=== PATIENT | female | born 1980 | race African-American/Black ===

== ENCOUNTER 2016-11-16 19:50 | Inpatient (IN) | payer SELFPAY ==
[~2016-11-16] VITALS: Ht 170.2 cm; Wt 83.1 kg
[2016-11-16 19:55] VITALS: BP 119/69; PULSE 93; RESP 0; RESP 20; TEMP 98.6; O2SAT 100
[2016-11-16] MEDS ORDERED: SODIUM CHLOR 0.9% 1000 ML INJ 1,000 ML IV SCH ×2 (20:09→21:15)
[2016-11-16 20:12] LABS: MEAN CORPUSCULAR HGB CONC 28.6 % (32.0-36.0)
[2016-11-16] MEDS ORDERED: PANTOPRAZOLE SODIUM 40 MG VIAL IVP ONE (20:15)
[2016-11-16] MEDS ORDERED: ONDANSETRON HCL 4 MG/2 ML VIAL IVP ONE ×2 (20:15→21:15)
[2016-11-16] MEDS ORDERED: FAMOTIDINE 20 MG/2 ML VIAL IV PUSH ONE (20:15)
[2016-11-16] MEDS ORDERED: SODIUM CHLORIDE 0.9% FLUSH 10 ML FLUSH IV FLUSH PRN ×2 (20:15→21:45)
[2016-11-16] MEDS ORDERED: HYDROmorphone HCL PF 2 MG/ML VIAL IVS ONE ×2 (20:15→21:15)
--- NOTE | 2016-11-16 20:15 | PD ---
HPI Chief Complaint: Abdominal Pain Time Seen by Provider: 20:09 Travel History International Travel<30 days: No Contact w/Intl Traveler<30days: No Traveled to known affect area: No History of Present Illness HPI The patient is a 36-year-old female who complains of midline epigastric pain starting about 12 noon this morning. She does have nausea and vomiting. She states the pain is sharp, like a gunshot wound, and a 10 over 10. She denies any fever or diarrhea. She has had her appendix out but still has her gallbladder. She denies any dysuria, frequency or urgency. She denies any fever. She denies drinking any alcohol recently. [facility] Past Medical History Diminished Hearing: No LMP: END OF LAST MONTH : 3 Para: 2 Miscarriage: 1 Past Surgical History Appendectomy: Yes Social History Alcohol Use: Yes Tobacco Use: Yes Substance Use: No Allergies-Medications (Allergen,Severity, Reaction): Coded Allergies: No Known Allergies (Verified , 02/16/14) Reported Meds & Prescriptions Reported Meds & Active Scripts Active No Active Prescriptions or Reported Medications Review of Systems Except as stated in HPI: all other systems reviewed are Neg Physical Exam Narrative GENERAL: The patient is alert, oriented 3 in moderate to severe distress with her abdominal pain. Her vital signs are normal. SKIN: Focused skin assessment warm/dry. HEAD: Atraumatic. Normocephalic. EYES: Pupils equal and round. No scleral icterus. No injection or drainage. ENT: No nasal bleeding or discharge. Mucous membranes pink and moist. NECK: Trachea midline. No JVD. CARDIOVASCULAR: Regular rate and rhythm. No murmur appreciated. RESPIRATORY: No accessory muscle use. Clear to auscultation. Breath sounds equal bilaterally. GASTROINTESTINAL: Abdomen soft in the lower quadrants with tenderness to direct palpation in the midline epigastrium there is some guarding in the midline epigastrium, nondistended. Hepatic and splenic margins not palpable. Hernandez's sign is positive. MUSCULOSKELETAL: No obvious deformities. No clubbing. No cyanosis. No edema. NEUROLOGICAL: Awake and alert. No obvious cranial nerve deficits. Motor grossly within normal limits. Normal speech. PSYCHIATRIC: Appropriate mood and affect; insight and judgment normal. Data Data Last Documented VS Vital Signs Date Time Temp Pulse Resp B/P Pulse Ox O2 Delivery O2 Flow Rate FiO2 11/16/16 21:00 17 11/16/16 20:30 83 133/63 100 Room Air 11/16/16 19:55 98.6 Orders Beta Hcg (Quant/Titer) (11/16/16 20:09) Complete Blood Count With Diff (11/16/16 20:09) Comprehensive Metabolic Panel (11/16/16 20:09) Lipase (11/16/16 20:09) Urinalysis - C+S If Indicated (11/16/16 20:09) Ct Abd/Pel W Iv Contrast(Rout) (11/16/16 20:09) Iv Access Insert/Monitor (11/16/16 20:09) Ecg Monitoring (11/16/16 20:09) Oximetry (11/16/16 20:09) Hydromorphone Pf Inj (Dilaudid Pf Inj) (11/16/16 20:15) Ondansetron Inj (Zofran Inj) (11/16/16 20:15) Pantoprazole Inj (Protonix Inj) (11/16/16 20:15) Sodium Chlor 0.9% 1000 Ml Inj (Ns 1000 M (11/16/16 20:09) Sodium Chloride 0.9% Flush (Ns Flush) (11/16/16 20:15) Famotidine Inj (Pepcid Inj) (11/16/16 20:15) Iohexol 350 Inj (Omnipaque 350 Inj) (11/16/16 20:54) Hydromorphone Pf Inj (Dilaudid Pf Inj) (11/16/16 21:15) Ondansetron Inj (Zofran Inj) (11/16/16 21:15) Sodium Chlor 0.9% 1000 Ml Inj (Ns 1000 M (11/16/16 21:15) Pantoprazole Inj (Protonix Inj) (11/17/16 09:00) Lipase (11/17/16 06:00) Piperacil-Tazo 4.5 Gm Premix (Zosyn 4.5 (11/16/16 22:00) Type And Screen (11/16/16 21:31) Admit To Inpatient (11/16/16 ) Vital Signs (Adult) Q4H (11/16/16 21:31) Activity Oob Ad Lisette (11/16/16 21:31) Intake + Output GEE.QSHIFT (11/16/16 21:31) Diet Clear Liquid (11/17/16 Breakfast) Sodium Chlor 0.9% 1000 Ml Inj (Ns 1000 M (11/16/16 21:31) Sodium Chloride 0.9% Flush (Ns Flush) (11/16/16 21:45) Sodium Chloride 0.9% Flush (Ns Flush) (11/17/16 09:00) Ondansetron Inj (Zofran Inj) (11/16/16 21:45) Comprehensive Metabolic Panel (11/17/16 06:00) Complete Blood Count With Diff (11/17/16 06:00) Scd Bilateral/Knee High GEE.BID (11/16/16 21:31) Dariel Bilateral/Knee High GEE.QSHIFT (11/16/16 21:31) Acetaminophen (Tylenol) (11/16/16 21:45) Hydromorphone Pf Inj (Dilaudid Pf Inj) (11/16/16 21:45) Oxycodone (Roxicodone) (11/16/16 21:45) Docusate Sodium-Senna (Melva-Colace) (11/17/16 09:00) Magnesium Hydroxide Liq (Milk Of Magnesi (11/16/16 21:45) Sennosides (Senokot) (11/16/16 21:45) Bisacodyl Supp (Dulcolax Supp) (11/16/16 21:45) Lactulose Liq (Lactulose Liq) (11/16/16 21:45) Inpatient Certification (11/16/16 ) Labs Laboratory Tests Test 11/16/16 20:15 White Blood Count 14.3 TH/MM3 Red Blood Count 4.04 MIL/MM3 Hemoglobin 7.5 GM/DL Hematocrit 26.2 % Mean Corpuscular Volume 64.9 FL Mean Corpuscular Hemoglobin 18.5 PG Mean Corpuscular Hemoglobin 28.6 % Concent Red Cell Distribution Width 21.4 % Platelet Count 380 TH/MM3 Mean Platelet Volume 8.1 FL Neutrophils (%) (Auto) 81.7 % Lymphocytes (%) (Auto) 10.1 % Monocytes (%) (Auto) 6.6 % Eosinophils (%) (Auto) 0.0 % Basophils (%) (Auto) 1.6 % Neutrophils # (Auto) 11.8 TH/MM3 Lymphocytes # (Auto) 1.4 TH/MM3 Monocytes # (Auto) 0.9 TH/MM3 Eosinophils # (Auto) 0.0 TH/MM3 Basophils # (Auto) 0.2 TH/MM3 CBC Comment AUTO DIFF Differential Comment AUTO DIFF CONFIRMED Tear Drop Cells 1+ Ovalocytes 1+ Stomatocytes 1+ Urine Color YELLOW Urine Turbidity CLEAR Urine pH GREATER/EQUAL 9.0 Urine Specific [place] 1.025 Urine Protein TRACE mg/dL Urine Glucose (UA) NEG mg/dL Urine Ketones NEG mg/dL Urine Occult Blood NEG Urine Nitrite NEG Urine Bilirubin NEG Urine Leukocyte Esterase NEG Urine RBC 0-3 /hpf Urine WBC 0-2 /hpf Urine Squamous Epithelial 6-8 /hpf Cells Microscopic Urinalysis Comment CULT NOT INDICATED Sodium Level 139 MEQ/L Potassium Level 3.5 MEQ/L Chloride Level 107 MEQ/L Carbon Dioxide Level 24.2 MEQ/L Anion Gap 8 MEQ/L Blood Urea Nitrogen 5 MG/DL Creatinine 0.67 MG/DL Estimat Glomerular Filtration 119 ML/MIN Rate Random Glucose 112 MG/DL Calcium Level 8.1 MG/DL Total Bilirubin 0.3 MG/DL Aspartate Amino Transf 23 U/L (AST/SGOT) Alanine Aminotransferase 30 U/L (ALT/SGPT) Alkaline Phosphatase 85 U/L Total Protein 7.2 GM/DL Albumin 3.3 GM/DL Lipase 82173 U/L Human Chorionic Gonadotropin, LESS THAN 1 Quant MIU/ML [facility] Medical Decision Making Medical Screen Exam Complete: Yes Emergency Medical Condition: Yes Medical Record Reviewed: Yes Interpretation(s) The CBC shows a white count of 14,300 with 82% neutrophils. The complete metabolic profile is normal except for calcium of 8.1 and albumen of 3.3. The lipase is 19,870. The beta-hCG is less than 1. The urinalysis is normal except for specific gravity 1.025. The CT abdomen/pelvis with IV contrast shows acute pancreatitis. Differential Diagnosis Pancreatitis, acute cholecystitis, choledocholithiasis, pyelonephritis, electrolyte disorder, dehydration, Narrative Course It is now 9:21 PM and the patient is still in significant pain. She will be given a second 1 mg dose of Dilaudid IV. Physician Communication Physician Communication I discussed the patient with Dr. Hatch, the patient will be admitted to her. Diagnosis Primary Impression: Acute pancreatitis Additional Impressions: Intractable abdominal pain Intractable vomiting with nausea Admitting Information Admitting Physician Requests: Admit Scripts No Active Prescriptions or Reported Meds Merlin Mireles MD Nov 16, 2016 20:15
[2016-11-16 20:30] VITALS: BP 133/63; PULSE 83; RESP 22; O2SAT 100
[2016-11-16 20:41] LABS: BLOOD, URINE NEG (NEG); GLUCOSE,URINE NEG (NEG); KETONE, URINE NEG (NEG); NITRITE,URINE NEG (NEG)
[2016-11-16 20:43] LABS: PH, URINE GREATER/EQUAL 9.0 (5.0-8.5)
[2016-11-16 20:45] LABS: AUTOMATED NEUTROPHIL # 11.8 TH/MM3 (1.8-7.7); BASOPHIL # 0.2 TH/MM3 (0-0.2); BASOPHIL % 1.6 % (0.0-2.0); HEMATOCRIT 26.2 % (35.0-46.0); LYMPH % 10.1 % (9.0-44.0); LYMPHOCYTE # 1.4 TH/MM3 (1.0-4.8); MEAN CELL VOLUME 64.9 FL (80.0-100.0); MEAN CORPUSCULAR HEMOGLOBIN 18.5 PG (27.0-34.0); MONO % 6.6 % (0.0-8.0); NEUT % 81.7 % (16.0-70.0); PLATELET COUNT 380 TH/MM3 (150-450); RED BLOOD COUNT 4.04 MIL/MM3 (4.00-5.30); RED CELL DISTRIBUTION WIDTH 21.4 % (11.6-17.2); WHITE BLOOD COUNT 14.3 TH/MM3 (4.0-11.0)
[2016-11-16 20:47] LABS: CHLORIDE 107 MEQ/L (98-107); HEMO FLAGS AUTO DIFF; POTASSIUM 3.5 MEQ/L (3.5-5.1); SODIUM (NA) 139 MEQ/L (136-145)
[2016-11-16 20:50] LABS: RBC, URINE 0-3 /hpf (0-3); URINE COLOR YELLOW (YELLW/STRAW); WBC, URINE 0-2 /hpf (0-5)
[2016-11-16 20:51] LABS: ANION GAP 8 MEQ/L (5-15); BICARBONATE 24.2 MEQ/L (21.0-32.0); BLOOD UREA NITROGEN 5 MG/DL (7-18); COMMENT (UR) CULT NOT INDICATED; CULTURE IF INDICATED CULT NOT INDICATED
[2016-11-16 20:53] LABS: ALT (GPT) 30 U/L (10-53); AST (GOT) 23 U/L (15-37)
[2016-11-16 20:54] LABS: GLOMERULAR FILTRATION RATE 119 ML/MIN (>89)
[2016-11-16] MEDS ORDERED: IOHEXOL 350 MG/ML 10 ML VIAL (for RAD DIAG) IV ONE (20:54)
[2016-11-16 20:55] LABS: TOTAL BILIRUBIN ADULT 0.3 MG/DL (0.2-1.0)
[2016-11-16 20:56] LABS: ALKALINE PHOSPHATASE 85 U/L (45-117)
[2016-11-16 20:59] LABS: BETA HCG QUANT LESS THAN 1 MIU/ML (0-5)
[2016-11-16 21:18] LABS: OVALOCYTES 1+ (NORMAL); SCAN/DIFF AUTO DIFF CONFIRMED; STOMATOCYTES 1+ (NORMAL); TEARDROP RBCS 1+ (NORMAL)
--- NOTE | 2016-11-16 21:20 | RADRPT ---
EXAM DATE/TIME: 11/16/2016 20:40 [facility] COMPARISON: No previous studies available for comparison. INDICATIONS : Mid epigastric pain IV CONTRAST: 97 cc Omnipaque 350 (iohexol) IV ORAL CONTRAST: No oral contrast ingested. RADIATION DOSE: 6.88 CTDIvol (mGy) MEDICAL HISTORY : None SURGICAL HISTORY : Appendectomy. ENCOUNTER: Initial ACUITY: 1 day PAIN SCALE: 10/10 LOCATION: Bilateral middle abdomen TECHNIQUE: Volumetric scanning of the abdomen and pelvis was performed. Using automated exposure control and ad justment of the mA and/or kV according to patient size, radiation dose was kept as low as reasonably achievable to obtain optimal diagnostic quality images. DICOM format image data is available electro nically for review and comparison. FINDINGS: Focal area of low-density in the left lobe adjacent to the falciform ligament measuring 2.1 cm. This is felt to represent focal fatty infiltration. The kidneys, spleen, adrenal glands, gallbladder are u nremarkable. Urinary bladder and bilateral ovaries are unremarkable. A small amount of free fluid in the pelvis is noted. A the uterus is abnormal. There is an inhomogeneous area of low density measurin g 3.8 x 0.2 cm at the posterior mid body possibly a fibroid. No pathologically enlarged lymph nodes. The pancreas is abnormal. There is peripancreatic fluid and inflammatory stranding seen in the peripa ncreatic fat and fluid in the anterior pararenal space on the left. Pancreatic duct measures 4.6 mm. Slightly decreased attenuation of the pancreatic parenchyma is noted though homogeneous throughout. L ina bases are clear. Osseous structures are intact. CONCLUSION: Acute pancreatitis. Free fluid in the pelvis and probable fibroid. Zafar Brumfield MD on November 16, 2016 at 21:16 Board Certified Radiologist. This report was verified electronically.
[2016-11-16 21:35] LABS: MEAN CORPUSCULAR HGB CONC 28.1 % (32.0-36.0)
[2016-11-16] MEDS: HYDROmorphone HCL PF 1 MG/ML VIAL IV PRN (21:40)
[2016-11-16] MEDS ORDERED: SENNOSIDES 8.6 MG TAB PO PRN (21:45)
[2016-11-16] MEDS ORDERED: MAGNESIUM HYDROXIDE SUSP 30 ML CUP PO PRN (21:45)
[2016-11-16] MEDS ORDERED: ACETAMINOPHEN 325 MG TAB PO PRN (21:45)
[2016-11-16] MEDS ORDERED: ONDANSETRON HCL 4 MG/2 ML VIAL IVP PRN (21:45)
[2016-11-16] MEDS ORDERED: BISACODYL 10 MG SUPP RECTAL PRN (21:45)
[2016-11-16] MEDS ORDERED: LACTULOSE SYRUP 20 GM/30 ML CUP PO PRN (21:45)
[2016-11-16] MEDS: SODIUM CHLOR 0.9% 1000 ML INJ 1,000 ML IV SCH (22:09)
[2016-11-16] MEDS: PIPERACIL-TAZO 4.5 GM PREMIX 100 ML IV SCH (22:09)
[2016-11-16 22:51] VITALS: BP 127/85; PULSE 80; RESP 17; O2SAT 100
[2016-11-16 23:50] VITALS: BP 120/70; PULSE 72; RESP 18; O2SAT 100
[2016-11-17] VITALS (11 sets, daily range): BP systolic 119–146; BP diastolic 67–87; PULSE 56–90; RESP 18–20; TEMP 97.4–99.6; O2SAT 94–100
[2016-11-17] MEDS: HYDROmorphone HCL PF 1 MG/ML VIAL IV PRN ×5 (00:52→20:25)
[2016-11-17] MEDS: PIPERACIL-TAZO 4.5 GM PREMIX 100 ML IV SCH (03:49)
[2016-11-17 07:13] LABS: CHLORIDE 111 MEQ/L (98-107); POTASSIUM 3.7 MEQ/L (3.5-5.1); SODIUM (NA) 142 MEQ/L (136-145)
[2016-11-17 07:21] LABS: AUTOMATED NEUTROPHIL # 7.7 TH/MM3 (1.8-7.7); BASOPHIL % 0.3 % (0.0-2.0); EOSINOPHIL # 0.1 TH/MM3 (0-0.4); EOSINOPHIL % 0.7 % (0.0-4.0); HEMATOCRIT 23.1 % (35.0-46.0); LYMPH % 22.6 % (9.0-44.0); LYMPHOCYTE # 2.6 TH/MM3 (1.0-4.8); MEAN CELL VOLUME 65.8 FL (80.0-100.0); MEAN CORPUSCULAR HEMOGLOBIN 18.5 PG (27.0-34.0); MONO % 9.1 % (0.0-8.0); NEUT % 67.3 % (16.0-70.0); PLATELET COUNT 358 TH/MM3 (150-450); RED BLOOD COUNT 3.52 MIL/MM3 (4.00-5.30); WHITE BLOOD COUNT 11.4 TH/MM3 (4.0-11.0)
[2016-11-17 07:25] LABS: ANION GAP 8 MEQ/L (5-15); BICARBONATE 23.3 MEQ/L (21.0-32.0); BLOOD UREA NITROGEN 5 MG/DL (7-18)
[2016-11-17 07:27] LABS: ALT (GPT) 24 U/L (10-53); AST (GOT) 17 U/L (15-37)
[2016-11-17 07:28] LABS: GLOMERULAR FILTRATION RATE 128 ML/MIN (>89)
[2016-11-17 07:29] LABS: TOTAL BILIRUBIN ADULT 0.4 MG/DL (0.2-1.0)
[2016-11-17 07:30] LABS: ALKALINE PHOSPHATASE 72 U/L (45-117)
[2016-11-17 07:37] LABS: HEMO FLAGS AUTO DIFF
[2016-11-17 08:03] LABS: OVALOCYTES 1+ (NORMAL); ROULEAUX PRESENT (NORMAL); STOMATOCYTES 1+ (NORMAL); TARGET CELLS 1+ (NORMAL); TEARDROP RBCS 1+ (NORMAL)
[2016-11-17 08:04] LABS: SCAN/DIFF AUTO DIFF CONFIRMED
[2016-11-17] MEDS: DOCUSATE SODIUM 50 MG/SENNA 8.6 MG TAB PO SCH ×2 (08:09→20:24)
[2016-11-17] MEDS: PANTOPRAZOLE SODIUM 40 MG VIAL IV PUSH SCH ×2 (08:09→20:24)
[2016-11-17] MEDS: SODIUM CHLORIDE 0.9% FLUSH 10 ML FLUSH IV FLUSH SCH ×2 (08:10→20:29)
[2016-11-17] MEDS: SODIUM CHLOR 0.9% 1000 ML INJ 1,000 ML IV SCH ×2 (08:10→20:31)
--- NOTE | 2016-11-17 09:09 | HHI.HP ---
[facility] No Primary Care Physician Admission Diagnosis acute pancreatitis, intractable pain/vomiting Diagnoses: (1) Acute pancreatitis Diagnosis: Principal (2) Anemia Diagnosis: Principal Chief Complaint: abdominal pain Travel History International Travel<30 Days: No Contact w/Intl Traveler <30 Da: No Traveled to Known Affected Are: No History of Present Illness patient is a 36 y/o female with no significant past medical history who presented to ER with abdominal pain. she says that the pain started yesterday. pain was epigastric in location, constant and severe in intensity. she says that she tried some apple cider with no relief. pain was associated with nausea and emesis. she denies any rectal bleed or black stools. she says that she takes aleve on and off for her pain. she also reports heavy periods. Review of Systems Constitutional: DENIES: Fever, Weight loss, Chills, Night Sweats Eyes: DENIES: Blurred vision, Diplopia, Vision loss, Double Vision Ears, nose, mouth, throat: DENIES: Tinnitus, Vertigo, Throat pain, Epistaxis Respiratory: DENIES: Apneas, Cough, Snoring, Wheezing, Hemoptysis, Sputum production, Shortness of breath Cardiovascular: DENIES: Chest pain, Palpitations, Syncope, Dyspnea on Exertion , PND, Lower Extremity Edema, Orthopnea, Claudication Gastrointestinal: COMPLAINS OF: Abdominal pain, Nausea, Vomiting, DENIES: Black stools, Bloody stools, Constipation, Diarrhea, Difficulty Swallowing, Anorexia Genitourinary: COMPLAINS OF: Abnormal vaginal bleeding, DENIES: Urinary frequency, Urgency, Hematuria, Dysuria Musculoskeletal: DENIES: Joint pain, Muscle aches, Stiffness, Joint Swelling Integumentary: DENIES: Rash Neurologic: DENIES: Abnormal gait, Headache, Localized weakness, Paresthesias, Seizures, Speech Problems, Tremor, Poor Balance Psychiatric: DENIES: Anxiety, Confusion, Mood changes, Depression, Hallucinations, Agitation, Suicidal Ideation, Homicidal Ideation, Delusions Past Family Social History Past Medical History none reported. Past Surgical History appendectomy. Reported Medications none except ' pain killers' as needed. Allergies: Coded Allergies: No Known Allergies (Verified , 02/16/14) Active Ordered Medications Current Medications Hydromorphone HCl (Dilaudid Pf Inj) 1 mg ONCE ONCE IVS Last administered on 20:24; Start 11/16/16 at 20:15; Stop 11/16/16 at 20:16; Status DC Ondansetron HCl (Zofran Inj) 4 mg ONCE ONCE IVP Last administered on 20:25; Start 11/16/16 at 20:15; Stop 11/16/16 at 20:16; Status DC Pantoprazole Sodium 40 mg 40 mg ONCE ONCE IVP Last administered on 11/16/16 20:23; Start 11/16/16 at 20:15; Stop 11/16/16 at 20:16; Status DC Sodium Chloride (NS 1000 ml Inj) 1,000 ml @ 1,000 mls/hr Q1H IV Last administered on 11/16/16 20:30; Start 11/16/16 at 20:09; Stop 11/16/16 at 21:08 ; Status DC Sodium Chloride (NS Flush) 2 ml UNSCH PRN IV FLUSH FLUSH AFTER USING IV ACCESS ; Start 11/16/16 at 20:15; Stop 11/16/16 at 21:39; Status DC Famotidine (Pepcid Inj) 20 mg ONCE ONCE IV PUSH Last administered on 20:25; Start 11/16/16 at 20:15; Stop 11/16/16 at 20:16; Status DC Iohexol (Omnipaque 350 Inj) 97 ml STK-MED ONCE IV Last administered on 20:54; Start 11/16/16 at 20:54; Stop 11/16/16 at 20:55; Status DC Hydromorphone HCl (Dilaudid Pf Inj) 1 mg ONCE ONCE IVS ; Start 11/16/16 at 21: 15; Stop 11/16/16 at 21:17; Status DC Ondansetron HCl 4 mg 4 mg ONCE ONCE IVP Last administered on 11/16/16 21:40; Start 11/16/16 at 21:15; Stop 11/16/16 at 21:17; Status DC Sodium Chloride (NS 1000 ml Inj) 1,000 ml @ 1,000 mls/hr Q1H IV Last administered on 11/16/16 21:41; Start 11/16/16 at 21:15; Stop 11/16/16 at 22:14 ; Status DC Pantoprazole Sodium 40 mg 40 mg Q12H IV PUSH Last administered on 11/17/16 08: 09; Start 11/17/16 at 09:00 Piperacillin Sod/ Tazobactam Sod 100 ml @ 200 mls/hr Q6H IV Last administered on 11/17/16 03:49; Start 11/16/16 at 22:00 Sodium Chloride (NS 1000 ml Inj) 1,000 ml @ 100 mls/hr Q10H IV Last administered on 11/17/16 08:10; Start 11/16/16 at 21:31 Sodium Chloride (NS Flush) 2 ml UNSCH PRN IV FLUSH FLUSH AFTER USING IV ACCESS ; Start 11/16/16 at 21:45 Sodium Chloride (NS Flush) 2 ml BID IV FLUSH ; Start 11/17/16 at 09:00 Ondansetron HCl (Zofran Inj) 4 mg Q6H PRN IVP NAUSEA OR VOMITING; Start at 21:45 Acetaminophen (Tylenol) 650 mg Q6H PRN PO FEVER/PAIN SCALE 1 TO 2; Start at 21:45 Hydromorphone HCl (Dilaudid Pf Inj) 1 mg Q3H PRN IV Pain 6-10 Last administered on 11/17/16 08:11; Start 11/16/16 at 21:45 Oxycodone HCl (Roxicodone) 5 mg Q4H PRN PO PAIN SCALE 3 TO 5; Start 11/16/16 at 21:45 Senna/Docusate Sodium (Melva-Colace) 1 tab BID PO Last administered on 08:09; Start 11/17/16 at 09:00 Magnesium Hydroxide (Milk Of Magnesia Liq) 30 ml Q12H PRN PO MILD - MODERATE CONSTIPATION; Start 11/16/16 at 21:45 Sennosides (Senokot) 17.2 mg Q12H PRN PO MODERATE - SEVERE CONSTIPATION; Start 11/16/16 at 21:45 Bisacodyl (Dulcolax Supp) 10 mg DAILY PRN RECTAL SEVERE CONSITIPATION; Start at 21:45 Lactulose (Lactulose Liq) 30 ml DAILY PRN PO SEVERE CONSITIPATION; Start at 21:45 Family History pancreatitis in mother Social History smokes a few cigarettes a day- drinks occasionally. Physical Exam Vital Signs Vital Signs Date Time Temp Pulse Resp B/P Pulse Ox O2 Delivery O2 Flow Rate FiO2 11/17/16 06:00 97.5 76 20 119/79 100 11/17/16 05:06 98.7 68 18 124/67 99 Room Air 11/17/16 04:15 17 11/17/16 00:57 98.5 56 18 126/67 100 Room Air 11/16/16 23:50 72 18 120/70 100 Room Air 11/16/16 22:51 80 17 127/85 100 Room Air 11/16/16 21:00 17 11/16/16 20:30 83 22 133/63 100 Room Air 11/16/16 19:55 98.6 93 20 119/69 100 Physical Exam GENERAL: This is a well-nourished, well-developed patient, in no apparent distress. SKIN: No rashes, ecchymoses or lesions. Cool and dry. HEAD: Atraumatic. Normocephalic. No temporal or scalp tenderness. EYES: Pupils equal round and reactive. Extraocular motions intact. No scleral icterus. No injection or drainage. ENT: Nose without bleeding, purulent drainage or septal hematoma. Throat without erythema, tonsillar hypertrophy or exudate. Uvula midline. Airway patent. NECK: Trachea midline. No JVD or lymphadenopathy. Supple, nontender, no meningeal signs. CARDIOVASCULAR: Regular rate and rhythm without murmurs, gallops, or rubs. RESPIRATORY: Clear to auscultation. Breath sounds equal bilaterally. No wheezes , rales, or rhonchi. GASTROINTESTINAL: Abdomen soft, epigastric tenderness, nondistended. No hepato- splenomegaly, or palpable masses. No guarding. MUSCULOSKELETAL: Extremities without clubbing, cyanosis, or edema. No joint tenderness, effusion, or edema noted. No calf tenderness. Negative Homans sign bilaterally. NEUROLOGICAL: Awake and alert. Cranial nerves II through XII intact. Motor and sensory grossly within normal limits. Five out of 5 muscle strength in all muscle groups. Normal speech. Laboratory Laboratory Tests Test 11/16/16 11/16/16 11/17/16 20:15 21:51 06:32 White Blood Count 14.3 11.4 Red Blood Count 4.04 3.52 Hemoglobin 7.5 6.5 Hematocrit 26.2 23.1 Mean Corpuscular Volume 64.9 65.8 Mean Corpuscular Hemoglobin 18.5 18.5 Mean Corpuscular Hemoglobin 28.6 28.1 Concent Red Cell Distribution Width 21.4 21.0 Platelet Count 380 358 Mean Platelet Volume 8.1 7.9 Neutrophils (%) (Auto) 81.7 67.3 Lymphocytes (%) (Auto) 10.1 22.6 Monocytes (%) (Auto) 6.6 9.1 Eosinophils (%) (Auto) 0.0 0.7 Basophils (%) (Auto) 1.6 0.3 Neutrophils # (Auto) 11.8 7.7 Lymphocytes # (Auto) 1.4 2.6 Monocytes # (Auto) 0.9 1.0 Eosinophils # (Auto) 0.0 0.1 Basophils # (Auto) 0.2 0.0 CBC Comment AUTO DIFF AUTO DIFF Differential Comment AUTO DIFF AUTO DIFF CONFIRMED CONFIRMED Tear Drop Cells 1+ 1+ Ovalocytes 1+ 1+ Stomatocytes 1+ 1+ Urine Color YELLOW Urine Turbidity CLEAR Urine pH GREATER/EQUAL 9.0 Urine Specific [place] 1.025 Urine Protein TRACE Urine Glucose (UA) NEG Urine Ketones NEG Urine Occult Blood NEG Urine Nitrite NEG Urine Bilirubin NEG Urine Leukocyte Esterase NEG Urine RBC 0-3 Urine WBC 0-2 Urine Squamous Epithelial 6-8 Cells Microscopic Urinalysis Comment CULT NOT INDICATED Sodium Level 139 142 Potassium Level 3.5 3.7 Chloride Level 107 111 Carbon Dioxide Level 24.2 23.3 Anion Gap 8 8 Blood Urea Nitrogen 5 5 Creatinine 0.67 0.63 Estimat Glomerular Filtration 119 128 Rate Random Glucose 112 83 Calcium Level 8.1 7.9 Total Bilirubin 0.3 0.4 Aspartate Amino Transf 23 17 (AST/SGOT) Alanine Aminotransferase 30 24 (ALT/SGPT) Alkaline Phosphatase 85 72 Total Protein 7.2 6.6 Albumin 3.3 3.0 Lipase 76088 [id number] Human Chorionic Gonadotropin, LESS THAN 1 Quant Blood Type O POSITIVE Antibody Screen NEGATIVE Target Cells 1+ Rouleau PRESENT Result Diagram: 11/17/1632 11/17/16 0632 Imaging Last Impressions Abdomen/Pelvis CT 11/16/162008 Signed Impressions: Service Date/Time: Wednesday, November 16, 2016 20:40 - CONCLUSION: Acute pancreatitis. Free fluid in the pelvis and probable fibroid. Zafar Brumfield MD Assessment and Plan Assessment and Plan A/P - acute pancreatitis keep on clear liquid diet- continue with supportive care with IV fluid, pain control and antiemetics- check sonogram of the GB- consult GI -anemia- hypochromic,microcytic due to iron deficiency- likely due to menorrhagia transfuse with PRBC today and monitor H/H- anemia w/u with stool for blood Discussed Condition With the patient and RN. Physician Certification 2 Midnight Certification Type: Admission for Inpatient Services Order for Inpatient Services The services are ordered in accordance with Medicare regulations or non- Medicare payer requirements, as applicable. In the case of services not specified as inpatient-only, they are appropriately provided as inpatient services in accordance with the 2-midnight benchmark. Estimated LOS (days): 2 days is the estimated time the patient will need to remain in the hospital, assuming treatment plan goals are met and no additional complications. Post-Hospital Plan: Home Problem Qualifiers (1) Anemia: Qualified Code: D50.0 - Iron deficiency anemia due to chronic blood loss Flavia Love MD Nov 17, 2016 09:09
[2016-11-17 11:31] LABS: FERRITIN 3 NG/ML (8-252); TRANSFERRIN IRON PROFILE 329 MG/DL (200-360)
[2016-11-17] MEDS: diphenhydrAMINE HCL 25 MG CAP PO PRN ×2 (13:56→20:24)
--- NOTE | 2016-11-17 16:01 | RADRPT ---
EXAM DATE/TIME: 11/17/2016 15:11 [facility] COMPARISON: CT ABDOMEN & PELVIS W CONTRAST, November 16, 2016, 20:40. INDICATIONS : Right upper quadrant pain. MEDICAL HISTORY : Abnormal uterine bleeding. Abdominal pain. Nausea/vomiting. SURGICAL HISTORY : Appendectomy. ENCOUNTER: Initial ACUITY: 1 day PAIN SCORE: 2/10 LOCATION: Right upper quadrant MEASUREMENTS: LIVER: 19.3 cm length COMMON DUCT: 4 mm RIGHT KIDNEY: 11.9 x 4.5 x 4.8 cm FINDINGS: LIVER: Normal echotexture without ductal dilatation. Echogenic lesion left lobe measures 22 x 21 x 14 mm. COMMON DUCT: No intraluminal mass or stone visualized. GALLBLADDER: Contains no stones, demonstrates no wall thickening or pericholecystic fluid. PANCREAS: Fluid surrounding the pancreas.. RIGHT KIDNEY: No evidence of hydronephrosis, stone, or mass. CONCLUSION: 1. Fluid surrounding the pancreas likely pancreatitis. Dilated pancreatic duct is not seen. 2. Echogenic liver lesion likely hemangioma. Rhys Ni MD on November 17, 2016 at 15:57 Board Certified Radiologist. This report was verified electronically.
[2016-11-17 18:28] LABS: HEMATOCRIT 23.5 % (35.0-46.0)
--- NOTE | 2016-11-17 22:14 | MB ---
cc: ANDRES BOB M.D. DATE OF CONSULTATION 11/17/[address] Love REASON FOR CONSULTATION Acute pancreatitis, abdominal pain, nausea and vomiting. HISTORY OF PRESENT ILLNESS Ms. Vitale is a 36-year-old lady with no previous medical issue, came to emergency room with complaints of abdominal pain, nausea and vomiting. The pain was located in the epigastrium was severe. Tried some apple cider for relief which did not work and she came here for further evaluation and treatment. The patient stated that she had a very heavy meal prior to that. Denies any melena, hematemesis or hematochezia, weight loss or weight gain, previous GI symptoms. She does report some heavy periods. PAST MEDICAL HISTORY None. PAST SURGICAL HISTORY Appendectomy. MEDICATIONS None, just pain and killers as needed. ALLERGIES No known allergies. MEDICATIONS In the hospital she was started on: 1. Protonix. 2. IV fluids. 3. Zofran. 4. Tylenol. FAMILY HISTORY Mother had pancreatitis. SOCIAL HISTORY Smokes cigarettes and drinks occasionally. She reports not having alcohol drinks for a week prior to her admission. PHYSICAL EXAMINATION GENERAL: On clinical examination she is sitting comfortably in bed in no acute distress. VITAL SIGNS: Temperature 99.6, pulse 76, respiration 18, blood pressure 142/87, saturation 100. HEENT: [place]. NECK: No JVD. No lymphadenopathy. CHEST: Clear to auscultation and palpation. CARDIOVASCULAR: S1-S2. No murmur. ABDOMEN: Abdomen is soft, nontender. Bowel sounds are present. BOOKKEEPER: Awake, alert, oriented x3. No focal signs identified. LABORATORY DATA Her hemoglobin is 7.5, currently is 7. Her white count 14.3 with platelet count of 380. Her iron is 11, saturation 2.4. Lipase was 19,000, currently 11,000. Her iron saturation is 3%. IMAGING STUDIES Her CT abdomen and pelvis showed acute pancreatitis and a fibroid. Ultrasound of the gallbladder showed fluids around the pancreas. Dilated pancreatic duct is not seen. Echogenic liver lesion, likely hemangioma. IMPRESSION Ms. Vitale is a 36-year-old lady admitted with abdominal pain, nausea and vomiting, found to have acute pancreatitis, most likely secondary to alcohol but other etiology including biliary pathology needs to be excluded. Iron deficiency anemia most likely secondary to menorrhagia and fibroid uterus but also GI pathology needs to be excluded. RECOMMENDATIONS Clear liquid diet. MRCP, SOCIAL MEDIA INTERN evaluation inpatient versus outpatient. May also benefit from an upper endoscopy and colonoscopy. This can be done as an outpatient or next week after her pancreatitis clinically improves. I would like to thank Dr. Love for referring her to our office for consultation. Plan and results were discussed with the patient. Thank you again. We will continue to follow the patient along with you. She was advised to stop drinking alcohol and stop smoking. MD DON PayneB/EO /9:23 PM /10:04 PM
[2016-11-18] VITALS: BP 122/83; PULSE 72; RESP 16; TEMP 99.4; O2SAT 99
[2016-11-18] MEDS: SODIUM CHLOR 0.9% 1000 ML INJ 1,000 ML IV SCH (03:31)
[2016-11-18 06:49] LABS: AUTOMATED NEUTROPHIL # 9.5 TH/MM3 (1.8-7.7); BASOPHIL # 0.1 TH/MM3 (0-0.2); BASOPHIL % 0.4 % (0.0-2.0); EOSINOPHIL # 0.2 TH/MM3 (0-0.4); EOSINOPHIL % 1.3 % (0.0-4.0); HEMATOCRIT 24.9 % (35.0-46.0); LYMPH % 14.6 % (9.0-44.0); LYMPHOCYTE # 1.8 TH/MM3 (1.0-4.8); MEAN CELL VOLUME 67.4 FL (80.0-100.0); MEAN CORPUSCULAR HEMOGLOBIN 19.6 PG (27.0-34.0); MONO % 7.1 % (0.0-8.0); NEUT % 76.6 % (16.0-70.0); PLATELET COUNT 337 TH/MM3 (150-450); RED CELL DISTRIBUTION WIDTH 22.4 % (11.6-17.2); WHITE BLOOD COUNT 12.5 TH/MM3 (4.0-11.0)
[2016-11-18 06:51] LABS: HEMO FLAGS AUTO DIFF
[2016-11-18 06:58] LABS: POTASSIUM 3.4 MEQ/L (3.5-5.1)
[2016-11-18 07:05] LABS: BICARBONATE 21.8 MEQ/L (21.0-32.0)
[2016-11-18 07:07] LABS: OVALOCYTES 1+ (NORMAL); ROULEAUX PRESENT (NORMAL)
[2016-11-18 07:08] LABS: SCAN/DIFF AUTO DIFF CONFIRMED
[2016-11-18 08:00] VITALS: BP 134/93; PULSE 81; RESP 18; TEMP 99; O2SAT 100
[2016-11-18] MEDS: SODIUM CHLORIDE 0.9% FLUSH 10 ML FLUSH IV FLUSH SCH ×2 (09:00→21:46)
--- NOTE | 2016-11-18 09:04 | HHI.PR ---
Subjective Remarks still with epigastric pain. no nausea or vomiting. awaiting MRCP. Objective Vitals Vital Signs Date Time Temp Pulse Resp B/P Pulse Ox O2 Delivery O2 Flow Rate FiO2 11/18/16 04:00 11/18/16 00:00 99.4 72 16 122/83 99 11/17/16 21:02 99.6 76 18 142/87 100 11/17/16 17:53 18 11/17/16 16:00 98.9 90 18 146/86 99 11/17/16 15:30 98.9 82 18 145/82 100 11/17/16 14:30 98.1 81 18 136/81 99 11/17/16 14:00 98.0 77 18 144/80 99 11/17/16 13:45 98.7 70 18 133/83 99 11/17/16 13:26 18 11/17/16 12:00 97.4 71 18 133/78 100 I/O 11/17/16 11/17/16 11/17/16 11/18/16 11/18/16 11/18/16 07:00 15:00 23:00 07:00 15:00 23:00 Intake Total 640 ml 1005 ml 2654 ml 4312 ml Output Total 2150 ml 1100 ml Balance 640 ml -1145 ml 1554 ml 4312 ml Intake Oral 120 ml 1005 ml IV Total 520 ml 2404 ml 4312 ml Packed Cells 250 ml Output Urine Total 2150 ml 1100 ml # Voids 1 3 # Bowel Movements 0 Result Diagram: 11/18/16 0620 11/18/16 0620 Imaging Last Impressions Gall Bladder Ultrasound 11/17/16 0000 Signed Impressions: Service Date/Time: Thursday, November 17, 2016 15:11 - CONCLUSION: 1. Fluid surrounding the pancreas likely pancreatitis. Dilated pancreatic duct is not seen. 2. Echogenic liver lesion likely hemangioma. Rhys Ni MD Abdomen/Pelvis CT 11/16/162008 Signed Impressions: Service Date/Time: Wednesday, November 16, 2016 20:40 - CONCLUSION: Acute pancreatitis. Free fluid in the pelvis and probable fibroid. Zafar Brumfield MD Objective Remarks GENERAL: This is a well-nourished, well-developed patient, in no apparent distress. CARDIOVASCULAR: Regular rate and regular rhythm without murmurs, gallops, or rubs. RESPIRATORY: Clear to auscultation. Breath sounds equal bilaterally. No wheezes , rales, or rhonchi. GASTROINTESTINAL: Abdomen soft, epigastric tenderness, nondistended. Normal, active bowel sounds MUSCULOSKELETAL: Extremities without clubbing, cyanosis, or edema. NEURO: Alert & Oriented x4 to person, place, time, situation. Moves all ext x4 Medications and IVs Current Medications Hydromorphone HCl (Dilaudid Pf Inj) 1 mg ONCE ONCE IVS Last administered on 20:24; Start 11/16/16 at 20:15; Stop 11/16/16 at 20:16; Status DC Ondansetron HCl (Zofran Inj) 4 mg ONCE ONCE IVP Last administered on 20:25; Start 11/16/16 at 20:15; Stop 11/16/16 at 20:16; Status DC Pantoprazole Sodium 40 mg 40 mg ONCE ONCE IVP Last administered on 11/16/16 20:23; Start 11/16/16 at 20:15; Stop 11/16/16 at 20:16; Status DC Sodium Chloride (NS 1000 ml Inj) 1,000 ml @ 1,000 mls/hr Q1H IV Last administered on 11/16/16 20:30; Start 11/16/16 at 20:09; Stop 11/16/16 at 21:08 ; Status DC Sodium Chloride (NS Flush) 2 ml UNSCH PRN IV FLUSH FLUSH AFTER USING IV ACCESS ; Start 11/16/16 at 20:15; Stop 11/16/16 at 21:39; Status DC Famotidine (Pepcid Inj) 20 mg ONCE ONCE IV PUSH Last administered on 20:25; Start 11/16/16 at 20:15; Stop 11/16/16 at 20:16; Status DC Iohexol (Omnipaque 350 Inj) 97 ml STK-MED ONCE IV Last administered on 20:54; Start 11/16/16 at 20:54; Stop 11/16/16 at 20:55; Status DC Hydromorphone HCl (Dilaudid Pf Inj) 1 mg ONCE ONCE IVS ; Start 11/16/16 at 21: 15; Stop 11/16/16 at 21:17; Status DC Ondansetron HCl 4 mg 4 mg ONCE ONCE IVP Last administered on 11/16/16 21:40; Start 11/16/16 at 21:15; Stop 11/16/16 at 21:17; Status DC Sodium Chloride (NS 1000 ml Inj) 1,000 ml @ 1,000 mls/hr Q1H IV Last administered on 11/16/16 21:41; Start 11/16/16 at 21:15; Stop 11/16/16 at 22:14 ; Status DC Pantoprazole Sodium 40 mg 40 mg Q12H IV PUSH Last administered on 11/17/16 20: 24; Start 11/17/16 at 09:00 Piperacillin Sod/ Tazobactam Sod 100 ml @ 200 mls/hr Q6H IV Last administered on 11/17/16 03:49; Start 11/16/16 at 22:00; Stop 11/17/16 at 09:02; Status DC Sodium Chloride (NS 1000 ml Inj) 1,000 ml @ 100 mls/hr Q10H IV Last administered on 11/18/16 03:31; Start 11/16/16 at 21:31 Sodium Chloride (NS Flush) 2 ml UNSCH PRN IV FLUSH FLUSH AFTER USING IV ACCESS ; Start 11/16/16 at 21:45 Sodium Chloride (NS Flush) 2 ml BID IV FLUSH Last administered on 11/17/16 20: 29; Start 11/17/16 at 09:00 Ondansetron HCl (Zofran Inj) 4 mg Q6H PRN IVP NAUSEA OR VOMITING Last administered on 11/17/16 16:56; Start 11/16/16 at 21:45 Acetaminophen (Tylenol) 650 mg Q6H PRN PO FEVER/PAIN SCALE 1 TO 2; Start at 21:45 Hydromorphone HCl (Dilaudid Pf Inj) 1 mg Q3H PRN IV Pain 6-10 Last administered on 11/17/16 20:25; Start 11/16/16 at 21:45 Oxycodone HCl (Roxicodone) 5 mg Q4H PRN PO PAIN SCALE 3 TO 5 Last administered on 11/17/16 16:53; Start 11/16/16 at 21:45 Senna/Docusate Sodium (Melva-Colace) 1 tab BID PO Last administered on 20:24; Start 11/17/16 at 09:00 Magnesium Hydroxide (Milk Of Magnesia Liq) 30 ml Q12H PRN PO MILD - MODERATE CONSTIPATION; Start 11/16/16 at 21:45 Sennosides (Senokot) 17.2 mg Q12H PRN PO MODERATE - SEVERE CONSTIPATION; Start 11/16/16 at 21:45 Bisacodyl (Dulcolax Supp) 10 mg DAILY PRN RECTAL SEVERE CONSITIPATION; Start at 21:45 Lactulose (Lactulose Liq) 30 ml DAILY PRN PO SEVERE CONSITIPATION; Start at 21:45 Diphenhydramine HCl (Benadryl) 25 mg Q6H PRN PO ITCHING Last administered on 20:24; Start 11/17/16 at 13:30 A/P Assessment and Plan A/P - acute pancreatitis keep on clear liquid diet- continue with supportive care with IV fluid, pain control and antiemetics- GI consult appreciated and awaiting MRCP. -anemia- hypochromic,microcytic due to iron deficiency- likely due to menorrhagia s/p PRBC transfusion- continue to monitor H/H- will check pelvic sonogram- -hypokalemia; will replace. Flavia Love MD Nov 18, 2016 09:04
[2016-11-18] MEDS: HYDROmorphone HCL PF 1 MG/ML VIAL IV PRN ×3 (10:53→18:41)
[2016-11-18] MEDS: NS + KCL 20 MEQ INJ 1,000 ML IV SCH ×2 (10:55→21:52)
[2016-11-18] MEDS: DOCUSATE SODIUM 50 MG/SENNA 8.6 MG TAB PO SCH ×2 (10:57→21:47)
[2016-11-18] MEDS: PANTOPRAZOLE SODIUM 40 MG VIAL IV PUSH SCH ×2 (11:03→21:47)
[2016-11-18] MEDS: diphenhydrAMINE HCL 25 MG CAP PO PRN (11:04)
--- NOTE | 2016-11-18 11:06 | RADRPT ---
EXAM DATE/TIME: 11/18/2016 10:00 [facility] COMPARISON: CT ABDOMEN & PELVIS W CONTRAST, November 16, 2016, 20:40. US ABDOMEN - GALLBLADDER, November 17, 2016, 15:11 . INDICATIONS : Pancreatitis. MEDICAL HISTORY : None. SURGICAL HISTORY : Appendectomy. ENCOUNTER: Initial ACUITY: 1 day PAIN SCORE: 5/10 LOCATION: Upper abdomen TECHNIQUE: Multiplanar, multisequence magnetic resonance imaging of the abdomen was performed. High-resolution 3D dataset was utilized to reconstruct maximum-intensity projection (MIP) images. FINDINGS: INTRAHEPATIC BILE DUCTS: Within normal limits. No significant anatomical variant is present. EXTRAHEPATIC BILE DUCTS: The common bile duct measures 4. No stone or filling defect is identified. GALLBLADDER: No stones, wall thickening, or pericholecystic fluid. LIVER: There is focal fat measures 2 cm in size at the insertion site of the falciform ligament of no clinic al significance within normal limits corresponding the questioned hyperechoic mass on the patient's p rior ultrasound. PANCREAS: The findings of acute pancreatitis on the patient's CT examination are again identified slight fluid and edema surrounding the pancreas. CONCLUSION: 1. Focal fat at the insertion site of falciform ligament corresponding to the questioned hyperechoic mass on the patient's prior ultrasound of no clinical significance. 2. Findings of acute pancreatitis not changed and the bile ducts appear unremarkable. Elicia Jewell MD on November 18, 2016 at 10:56 Board Certified Radiologist. This report was verified electronically.
[2016-11-18 12:00] VITALS: BP 137/81; PULSE 85; RESP 18; TEMP 98.9; O2SAT 100
[2016-11-18 16:00] VITALS: BP 123/80; PULSE 83; RESP 18; TEMP 98.4; O2SAT 96
--- NOTE | 2016-11-18 16:23 | RADRPT ---
EXAM DATE/TIME: 11/18/2016 15:38 [facility] COMPARISON: No previous studies available for comparison. INDICATIONS : Pelvic bleeding. MEDICAL HISTORY : Abdominal pain. Nausea/vomiting. Abnormal uterine bleeding. SURGICAL HISTORY : Appendectomy. ENCOUNTER: Initial ACUITY: 1 day PAIN SCORE: 3/10 LOCATION: Bilateral pelvis MEASUREMENTS: UTERUS: 10.6 x 8.4 x 6.0 cm ENDOMETRIAL STRIPE: 7 mm RIGHT OVARY: 3.3 x 2.3 x 1.2 cm LEFT OVARY: 3.7 x 1.8 x 1.8 cm FINDINGS: UTERUS: The myometrium has homogeneous echotexture with 2 hypoechoic lesions measuring 22 x 26 x 27 mm and 40 x 39 x 33 mm.. RIGHT OVARY: Ovary contains no mass or significant cystic lesion. Dominant follicle measuring 11 mm. LEFT OVARY: Ovary contains no mass or significant cystic lesion. MISCELLANEOUS: No free fluid. CONCLUSION: 1. Two presumed leiomyomas in the uterus largest measuring 4 cm. 2. Dominant follicle right ovary. Rhys Ni MD on November 18, 2016 at 16:20 Board Certified Radiologist. This report was verified electronically.
[2016-11-18 20:00] VITALS: BP 132/76; PULSE 79; RESP 20; TEMP 98.8; O2SAT 99
[2016-11-18 21:09] LABS: MEAN CORPUSCULAR HGB CONC 29.5 % (32.0-36.0)
[2016-11-19] VITALS (7 sets, daily range): BP systolic 126–152; BP diastolic 75–91; PULSE 69–86; RESP 16–20; TEMP 96.3–98.9; O2SAT 98–100
[2016-11-19] MEDS: NS + KCL 20 MEQ INJ 1,000 ML IV SCH ×2 (06:00→08:03)
[2016-11-19 06:47] LABS: AUTOMATED NEUTROPHIL # 7.5 TH/MM3 (1.8-7.7); BASOPHIL # 0.1 TH/MM3 (0-0.2); BASOPHIL % 0.9 % (0.0-2.0); EOSINOPHIL # 0.2 TH/MM3 (0-0.4); EOSINOPHIL % 1.9 % (0.0-4.0); LYMPH % 13.9 % (9.0-44.0); LYMPHOCYTE # 1.5 TH/MM3 (1.0-4.8); MEAN CELL VOLUME 65.6 FL (80.0-100.0); MEAN CORPUSCULAR HEMOGLOBIN 19.4 PG (27.0-34.0); MONO % 13.2 % (0.0-8.0); NEUT % 70.1 % (16.0-70.0); PLATELET COUNT 382 TH/MM3 (150-450); RED BLOOD COUNT 3.56 MIL/MM3 (4.00-5.30); RED CELL DISTRIBUTION WIDTH 22.3 % (11.6-17.2); WHITE BLOOD COUNT 10.7 TH/MM3 (4.0-11.0)
[2016-11-19 07:11] LABS: HEMATOCRIT 23.3 % (35.0-46.0); HEMO FLAGS AUTO DIFF
[2016-11-19 07:32] LABS: OVALOCYTES 1+ (NORMAL); PLATELET ESTIMATE SMEAR NORMAL (NORMAL); PLATELET MORPHOLOGY NORMAL (NORMAL); ROULEAUX PRESENT (NORMAL); SCAN/DIFF AUTO DIFF CONFIRMED
[2016-11-19] MEDS: DOCUSATE SODIUM 50 MG/SENNA 8.6 MG TAB PO SCH ×2 (08:04→20:46)
[2016-11-19] MEDS: HYDROmorphone HCL PF 1 MG/ML VIAL IV PRN ×5 (08:05→22:01)
[2016-11-19] MEDS: SODIUM CHLORIDE 0.9% FLUSH 10 ML FLUSH IV FLUSH SCH ×2 (08:05→20:46)
[2016-11-19] MEDS: PANTOPRAZOLE SODIUM 40 MG VIAL IV PUSH SCH ×2 (08:05→20:46)
[2016-11-19] MEDS: diphenhydrAMINE HCL 25 MG CAP PO PRN ×3 (08:08→22:05)
--- NOTE | 2016-11-19 08:20 | HHI.PR ---
Subjective Remarks abdominal pain is better. no nausea or vomiting. noted a drop in H/H. d/w the RN and no other acute issues over night. Objective Vitals Vital Signs Date Time Temp Pulse Resp B/P Pulse Ox O2 Delivery O2 Flow Rate FiO2 11/19/16 00:00 98.9 76 20 140/87 98 11/18/16 20:00 98.8 79 20 132/76 99 11/18/16 16:00 98.4 83 18 123/80 96 11/18/16 12:00 98.9 85 18 137/81 100 I/O 11/18/16 11/18/16 11/18/16 11/19/16 11/19/16 11/19/16 07:00 15:00 23:00 07:00 15:00 23:00 Intake Total 4312 ml 4674 ml 240 ml Output Total 700 ml 300 ml Balance 4312 ml 3974 ml -60 ml Intake Oral 960 ml 240 ml IV Total 4312 ml 3714 ml Output Urine Total 700 ml 300 ml # Voids 3 2 3 # Bowel Movements 0 1 0 Result Diagram: 11/19/16 0635 11/18/16 0620 Imaging Last Impressions Pelvis Ultrasound 11/18/16 0000 Signed Impressions: Service Date/Time: Friday, November 18, 2016 15:38 - CONCLUSION: 1. Two presumed leiomyomas in the uterus largest measuring 4 cm. 2. Dominant follicle right ovary. Rhys Ni MD Cholangiopancreatography MRI 11/18/16 0000 Signed Impressions: Service Date/Time: Friday, November 18, 2016 10:00 - CONCLUSION: 1. Focal fat at the insertion site of falciform ligament corresponding to the questioned hyperechoic mass on the patient's prior ultrasound of no clinical significance. 2. Findings of acute pancreatitis not changed and the bile ducts appear unremarkable. Elicia Jewell MD Gall Bladder Ultrasound 11/17/16 0000 Signed Impressions: Service Date/Time: Thursday, November 17, 2016 15:11 - CONCLUSION: 1. Fluid surrounding the pancreas likely pancreatitis. Dilated pancreatic duct is not seen. 2. Echogenic liver lesion likely hemangioma. Rhys Ni MD Abdomen/Pelvis CT 11/16/162008 Signed Impressions: Service Date/Time: Wednesday, November 16, 2016 20:40 - CONCLUSION: Acute pancreatitis. Free fluid in the pelvis and probable fibroid. Zafar Brumfield MD Objective Remarks GENERAL: This is a well-nourished, well-developed patient, in no apparent distress. CARDIOVASCULAR: Regular rate and regular rhythm without murmurs, gallops, or rubs. RESPIRATORY: Clear to auscultation. Breath sounds equal bilaterally. No wheezes , rales, or rhonchi. GASTROINTESTINAL: Abdomen soft, epigastric tenderness, nondistended. Normal, active bowel sounds MUSCULOSKELETAL: Extremities without clubbing, cyanosis, or edema. NEURO: Alert & Oriented x4 to person, place, time, situation. Moves all ext x4 Medications and IVs Current Medications Hydromorphone HCl (Dilaudid Pf Inj) 1 mg ONCE ONCE IVS Last administered on 20:24; Start 11/16/16 at 20:15; Stop 11/16/16 at 20:16; Status DC Ondansetron HCl (Zofran Inj) 4 mg ONCE ONCE IVP Last administered on 20:25; Start 11/16/16 at 20:15; Stop 11/16/16 at 20:16; Status DC Pantoprazole Sodium 40 mg 40 mg ONCE ONCE IVP Last administered on 11/16/16 20:23; Start 11/16/16 at 20:15; Stop 11/16/16 at 20:16; Status DC Sodium Chloride (NS 1000 ml Inj) 1,000 ml @ 1,000 mls/hr Q1H IV Last administered on 11/16/16 20:30; Start 11/16/16 at 20:09; Stop 11/16/16 at 21:08 ; Status DC Sodium Chloride (NS Flush) 2 ml UNSCH PRN IV FLUSH FLUSH AFTER USING IV ACCESS ; Start 11/16/16 at 20:15; Stop 11/16/16 at 21:39; Status DC Famotidine (Pepcid Inj) 20 mg ONCE ONCE IV PUSH Last administered on 20:25; Start 11/16/16 at 20:15; Stop 11/16/16 at 20:16; Status DC Iohexol (Omnipaque 350 Inj) 97 ml STK-MED ONCE IV Last administered on 20:54; Start 11/16/16 at 20:54; Stop 11/16/16 at 20:55; Status DC Hydromorphone HCl (Dilaudid Pf Inj) 1 mg ONCE ONCE IVS ; Start 11/16/16 at 21: 15; Stop 11/16/16 at 21:17; Status DC Ondansetron HCl 4 mg 4 mg ONCE ONCE IVP Last administered on 11/16/16 21:40; Start 11/16/16 at 21:15; Stop 11/16/16 at 21:17; Status DC Sodium Chloride (NS 1000 ml Inj) 1,000 ml @ 1,000 mls/hr Q1H IV Last administered on 11/16/16 21:41; Start 11/16/16 at 21:15; Stop 11/16/16 at 22:14 ; Status DC Pantoprazole Sodium 40 mg 40 mg Q12H IV PUSH Last administered on 11/19/16 08: 05; Start 11/17/16 at 09:00 Piperacillin Sod/ Tazobactam Sod 100 ml @ 200 mls/hr Q6H IV Last administered on 11/17/16 03:49; Start 11/16/16 at 22:00; Stop 11/17/16 at 09:02; Status DC Sodium Chloride (NS 1000 ml Inj) 1,000 ml @ 100 mls/hr Q10H IV Last administered on 11/18/16 03:31; Start 11/16/16 at 21:31; Stop 11/18/16 at 09:02 ; Status DC Sodium Chloride (NS Flush) 2 ml UNSCH PRN IV FLUSH FLUSH AFTER USING IV ACCESS ; Start 11/16/16 at 21:45 Sodium Chloride (NS Flush) 2 ml BID IV FLUSH Last administered on 11/19/16 08: 05; Start 11/17/16 at 09:00 Ondansetron HCl (Zofran Inj) 4 mg Q6H PRN IVP NAUSEA OR VOMITING Last administered on 11/17/16 16:56; Start 11/16/16 at 21:45 Acetaminophen (Tylenol) 650 mg Q6H PRN PO FEVER/PAIN SCALE 1 TO 2; Start at 21:45 Hydromorphone HCl (Dilaudid Pf Inj) 1 mg Q3H PRN IV Pain 6-10 Last administered on 11/19/16 08:05; Start 11/16/16 at 21:45 Oxycodone HCl (Roxicodone) 5 mg Q4H PRN PO PAIN SCALE 3 TO 5 Last administered on 11/18/16 21:47; Start 11/16/16 at 21:45 Senna/Docusate Sodium (Melva-Colace) 1 tab BID PO Last administered on 08:04; Start 11/17/16 at 09:00 Magnesium Hydroxide (Milk Of Magnesia Liq) 30 ml Q12H PRN PO MILD - MODERATE CONSTIPATION; Start 11/16/16 at 21:45 Sennosides (Senokot) 17.2 mg Q12H PRN PO MODERATE - SEVERE CONSTIPATION; Start 11/16/16 at 21:45 Bisacodyl (Dulcolax Supp) 10 mg DAILY PRN RECTAL SEVERE CONSITIPATION; Start at 21:45 Lactulose (Lactulose Liq) 30 ml DAILY PRN PO SEVERE CONSITIPATION; Start at 21:45 Diphenhydramine HCl 25 mg 25 mg Q6H PRN PO ITCHING Last administered on 08:08; Start 11/17/16 at 13:30 Potassium Chloride/Sodium Chloride (NS + KCl 20 Meq Inj) 1,000 ml @ 100 mls/hr Q10H IV Last administered on 11/19/16 08:03; Start 11/18/16 at 10:00 A/P Assessment and Plan A/P - acute pancreatitis- clinically improving. advance the diet slowly- continue with supportive care with IV fluid, pain control and antiemetics- GI consult appreciated . -anemia- hypochromic,microcytic due to iron deficiency- likely due to menorrhagia due to leiomyoma with further drop in H/H- will transfuse with RBC today and continue to monitor H/H- outpatient f/u with [facility] and this was d/w the patient. -hypokalemia; replacedFlavia Muniz MD Nov 19, 2016 08:20
--- NOTE | 2016-11-19 09:43 | HHI.GIFU ---
Subjective Remarks feels better today, still having some abdominal discomfort, tolerating clear liquid Objective Vitals I&O Vital Signs Date Time Temp Pulse Resp B/P Pulse Ox O2 Delivery O2 Flow Rate FiO2 11/19/16 09:34 16 11/19/16 08:00 98.6 86 17 142/82 99 11/19/16 00:00 98.9 76 20 140/87 98 11/18/16 20:00 98.8 79 20 132/76 99 11/18/16 16:00 98.4 83 18 123/80 96 11/18/16 12:00 98.9 85 18 137/81 100 I/O 11/18/16 11/18/16 11/18/16 11/19/16 11/19/16 11/19/16 07:00 15:00 23:00 07:00 15:00 23:00 Intake Total 4312 ml 4674 ml 240 ml Output Total 700 ml 300 ml Balance 4312 ml 3974 ml -60 ml Intake Oral 960 ml 240 ml IV Total 4312 ml 3714 ml Output Urine Total 700 ml 300 ml # Voids 3 2 3 # Bowel Movements 0 1 0 Laboratory Laboratory Tests Test 11/19/16 11/19/16 06:35 08:17 White Blood Count 10.7 Red Blood Count 3.56 Hemoglobin 6.9 Hematocrit 23.3 Mean Corpuscular Volume 65.6 Mean Corpuscular Hemoglobin 19.4 Mean Corpuscular Hemoglobin 29.5 Concent Red Cell Distribution Width 22.3 Platelet Count 382 Mean Platelet Volume 7.6 Neutrophils (%) (Auto) 70.1 Lymphocytes (%) (Auto) 13.9 Monocytes (%) (Auto) 13.2 Eosinophils (%) (Auto) 1.9 Basophils (%) (Auto) 0.9 Neutrophils # (Auto) 7.5 Lymphocytes # (Auto) 1.5 Monocytes # (Auto) 1.4 Eosinophils # (Auto) 0.2 Basophils # (Auto) 0.1 CBC Comment AUTO DIFF Differential Comment AUTO DIFF CONFIRMED Platelet Estimate NORMAL Platelet Morphology Comment NORMAL Basophilic Stippling FAINT Ovalocytes 1+ Rouleau PRESENT Lipase 849 Blood Type O POSITIVE Date/Time Procedure Status Source Growth 11/18/16 16:40 Stool Occult Blood (NALINI) - Final Complete Stool Stool HEMOCCULT NEGATIVE Physical Exam HEENT: Pupils round and reactive to light; normocephalic; atraumatic; no jaundice. Throat is clear. NECK: Neck is supple, no JVD, no lymphadenopathy. CHEST: Chest is clear to auscultation and percussion. CARDIAC: Regular rate and rhythm with no murmur gallop or rubs. ABDOMEN: Soft, nondistended, mild epigastric tenderness; no hepatosplenomegaly ; bowel sounds are present in all four quadrants. EXTREMITIES: No clubbing, cyanosis, or edema. SKIN: Normal; no rash; no jaundice. SEARCH LEAD: No focal deficits; alert and oriented times three. Assessment and Plan Plan pancreatitis, ? etiology, MRCP showing normal CBD, IGG 4 pending tolerating diet, lipase improving anemia low iron, will need colon EGD could be done as outpatient. Wei Aparicio MD Nov 19, 2016 09:43
[2016-11-19] MEDS ORDERED: FERR325T8 PO (13:01)
--- NOTE | 2016-11-19 13:02 | HHI.DCPOC ---
Discharge Care Plan Diagnosis: (1) Intractable abdominal pain Additional Problems abdominal pain. anemia. Goals to Promote Your Health * To prevent worsening of your condition and complications * To maintain your health at the optimal level Directions to Meet Your Goals Take your medications as prescribed Follow your dietary instruction Follow activity as directed Keep your appointments as scheduled Take your immunizations and boosters as scheduled If your symptoms worsen call your PCP, if no PCP go to Urgent Care Center or Emergency Room Smoking is Dangerous to Your Health. Avoid second hand smoke Call the 24-hour hour crisis hotline for domestic abuse at Flavia Love MD Nov 19, 2016 13:02
[2016-11-19] MEDS ORDERED: PEG (High)/E-LYTE SOLN 4000 ML BTL PO ONE (15:00)
[2016-11-20] VITALS: BP 152/92; PULSE 79; RESP 16; TEMP 97.8; O2SAT 99
[2016-11-20] MEDS: NS + KCL 20 MEQ INJ 1,000 ML IV SCH ×3 (02:00→22:00)
[2016-11-20] MEDS: HYDROmorphone HCL PF 1 MG/ML VIAL IV PRN (02:31)
[2016-11-20 05:56] LABS: HEMATOCRIT 28.7 % (35.0-46.0)
[2016-11-20 06:25] VITALS: BP 158/98; PULSE 77; RESP 14; TEMP 99.1; O2SAT 100
[2016-11-20] MEDS ORDERED: PROPOFOL 200 MG/20 ML AMP IV ONE (08:07)
--- NOTE | 2016-11-20 08:26 | GIPROC ---
[address], [address] COLONOSCOPY PROCEDURE REPORT EXAM DATE: 11/20/2016 PATIENT NAME: Katty Vitale MR #: [id number] BIRTHDATE: 1980 ENDOSCOPIST: Wei Aparicio MD ORDER #: [id number] CHEMICAL TANK WORKER: Tony Wong and Nilson Lui STATUS: inpatient INDICATIONS: The patient is a 36 yr old female here for a colonoscopy due to iron deficiency anemia PROCEDURE PERFORMED: Colonoscopy, diagnostic MEDICATIONS: None and Per Anesthesia. PREP QUALITY: good ESTIMATED BLOOD LOSS: None CONSENT: The patient understands the risks and benefits of the procedure and understands that these risks include, but are not limited to: sedation, allergic reaction, infection, perforation and/or bleeding. Alternative means of evaluation and treatment include, among others: physical exam, x-rays, and/or surgical intervention. The patient elects to proceed with this endoscopic procedure. medical equipment was checked for proper function. Hand hygiene and appropriate measures for infection prevention was taken. After the risks, benefits and alternatives of the procedure were thoroughly explained, Informed consent was verified, confirmed and timeout was successfully executed by the treatment team. A digital exam revealed no abnormalities of the rectum The Pentax EC-[id number] endoscope was introduced through the anus and advanced to the cecum, which was identified by both the appendix and ileocecal valve. The instrument was then slowly withdrawn as the colon was fully examined. COLON FINDINGS: The colonic mucosa appeared normal. Retroflexed views revealed medium internal hemorrhoids The scope was then completely withdrawn from the patient and the procedure terminated. ADVERSE EVENTS: There were no complications. IMPRESSIONS: 1. The colonic mucosa appeared normal 2. Retroflexed views revealed medium internal hemorrhoids 3. Revealed no abnormalities of the rectum 4. No GI reason for anemia on colonoscopy or endoscopy RECOMMENDATIONS: May feed patient consider hematology consult RECALL: Return 10 years Colonoscopy Wei Aparicio MD eSigned: Wei Aparicio MD 11/20/2016 8:25 AM cc:
--- NOTE | 2016-11-20 08:34 | GIPROC ---
[address], [address] EGD PROCEDURE REPORT EXAM DATE: 11/20/2016 PATIENT NAME: Katty Vitale MR #: [id number] BIRTHDATE: 1980 ATTENDING: Wei Aparicio MD ORDER #: [id number] DRY END OPERATOR: Tony Wong and Nilson Lui STATUS: inpatient INDICATIONS: The patient is a 36 yr old female here for an EGD due to iron deficiency anemia PROCEDURE PERFORMED: EGD, diagnostic MEDICATIONS: None and Per Anesthesia. TOPICAL ANESTHETIC: none CONSENT: The patient understands the risks and benefits of the procedure and understands that these risks include, but are not limited to: sedation, allergic reaction, infection, perforation and/or bleeding. Alternative means of evaluation and treatment include, among others: physical exam, x-rays, and/or surgical intervention. The patient elects to proceed with this endoscopic procedure. medical equipment was checked for proper function. Hand hygiene and appropriate measures for infection prevention was taken. After the risks, benefits and alternatives of the procedure were thoroughly explained, Informed consent was verified, confirmed and timeout was successfully executed by the treatment team. The patient was anesthetized with topical anesthesia and the EC-[id number] (Pedi C) endoscope was introduced through the mouth and advanced to the second portion of the duodenum. Retroflexed views revealed no abnormalities The gastroscope was then slowly withdrawn and removed. Normal EGD. ADVERSE EVENTS: There were no complications. IMPRESSIONS: 1. Normal EGD 2. Retroflexed views revealed no abnormalities RECOMMENDATIONS: 1. Anti-reflux regimen 2. Hematology consult PATIENT CONDITION: stable DISPOSITION: Inpatient REPEAT EXAM: Return as needed for EGD Wei Aparicio MD eSigned: Wei Aparicio MD 11/20/2016 8:34 AM cc: PATIENT NAME: Katty Vitale MR#: [id number]
--- NOTE | 2016-11-20 08:38 | HHI.GIFU ---
Subjective Remarks feeling better, no sign of GI bleed, no abdominal pain Objective Vitals I&O Vital Signs Date Time Temp Pulse Resp B/P Pulse Ox O2 Delivery O2 Flow Rate FiO2 11/20/16 06:25 99.1 77 14 158/98 100 11/20/16 00:00 97.8 79 16 152/92 99 11/19/16 20:00 98.4 76 18 134/85 100 11/19/16 16:00 98.8 78 17 138/91 100 11/19/16 15:33 16 11/19/16 14:35 98.7 75 16 140/87 100 11/19/16 11:48 97.2 75 16 126/75 100 11/19/16 11:33 98.8 81 18 127/89 100 I/O 11/19/16 11/19/16 11/19/16 11/20/16 11/20/16 11/20/16 07:00 15:00 23:00 07:00 15:00 23:00 Intake Total 1925 ml 1200 ml 1000 ml Output Total 300 ml Balance 1625 ml 1200 ml 1000 ml Intake Oral 240 ml 1200 ml 1000 ml IV Total 1685 ml Output Urine Total 300 ml # Voids 3 4 4 # Bowel Movements 0 2 2 Laboratory Laboratory Tests Test 11/20/16 05:21 Hemoglobin 8.4 Hematocrit 28.7 Lipase 530 Date/Time Procedure Status Source Growth 11/18/16 16:40 Stool Occult Blood (NALINI) - Final Complete Stool Stool HEMOCCULT NEGATIVE Physical Exam HEENT: Pupils round and reactive to light; normocephalic; atraumatic; no jaundice. Throat is clear. NECK: Neck is supple, no JVD, no lymphadenopathy. CHEST: Chest is clear to auscultation and percussion. CARDIAC: Regular rate and rhythm with no murmur gallop or rubs. ABDOMEN: Soft, nondistended, mild epigastric tenderness; no hepatosplenomegaly ; bowel sounds are present in all four quadrants. EXTREMITIES: No clubbing, cyanosis, or edema. SKIN: Normal; no rash; no jaundice. [employer]E GOODS EXAMINER: No focal deficits; alert and oriented times three. Assessment and Plan Plan pancreatitis, ? etiology, MRCP showing normal CBD, IGG 4 pending tolerating diet, lipase improving we will start feeding patient anemia low iron,normal colon EGD , recommend hematology consult consider capsule endoscopy as outpatient GI FU in 2 -3 wks Wei Aparicio MD Nov 20, 2016 08:38
[2016-11-20] MEDS: SODIUM CHLORIDE 0.9% FLUSH 10 ML FLUSH IV FLUSH SCH ×2 (09:00→20:35)
[2016-11-20] MEDS: DOCUSATE SODIUM 50 MG/SENNA 8.6 MG TAB PO SCH ×2 (09:00→20:35)
[2016-11-20 09:31] VITALS: BP 153/87; PULSE 68; RESP 16; TEMP 98.1; O2SAT 100
[2016-11-20] MEDS: PANTOPRAZOLE SODIUM 40 MG VIAL IV PUSH SCH (09:41)
--- NOTE | 2016-11-20 09:57 | HHI.PR ---
Subjective Remarks in no acute distress. complaining of moderate epigastric pain with no nausea or vomiting. Objective Vitals Vital Signs Date Time Temp Pulse Resp B/P Pulse Ox O2 Delivery O2 Flow Rate FiO2 11/20/16 09:31 98.1 68 16 153/87 100 11/20/16 08:46 78 16 157/101 100 11/20/16 08:31 98.5 83 20 156/88 98 11/20/16 06:25 99.1 77 14 158/98 100 11/20/16 00:00 97.8 79 16 152/92 99 11/19/16 20:00 98.4 76 18 134/85 100 11/19/16 16:00 98.8 78 17 138/91 100 11/19/16 15:33 16 11/19/16 14:35 98.7 75 16 140/87 100 11/19/16 11:48 97.2 75 16 126/75 100 11/19/16 11:33 98.8 81 18 127/89 100 I/O 11/19/16 11/19/16 11/19/16 11/20/16 11/20/16 11/20/16 07:00 15:00 23:00 07:00 15:00 23:00 Intake Total 1925 ml 1200 ml 1000 ml 150 ml Output Total 300 ml Balance 1625 ml 1200 ml 1000 ml 150 ml Intake Oral 240 ml 1200 ml 1000 ml IV Total 1685 ml Other 150 ml Output Urine Total 300 ml # Voids 3 4 4 # Bowel Movements 0 2 2 Result Diagram: 11/20/16 0521 11/18/16 0620 Objective Remarks GENERAL: This is a well-nourished, well-developed patient, in no apparent distress. CARDIOVASCULAR: Regular rate and regular rhythm without murmurs, gallops, or rubs. RESPIRATORY: Clear to auscultation. Breath sounds equal bilaterally. No wheezes , rales, or rhonchi. GASTROINTESTINAL: Abdomen soft, epigastric tenderness, nondistended. Normal, active bowel sounds MUSCULOSKELETAL: Extremities without clubbing, cyanosis, or edema. NEURO: Alert & Oriented x4 to person, place, time, situation. Moves all ext x4 Medications and IVs Current Medications Hydromorphone HCl (Dilaudid Pf Inj) 1 mg ONCE ONCE IVS Last administered on t 20:24; Start 11/16/16 at 20:15; Stop 11/16/16 at 20:16; Status DC Ondansetron HCl (Zofran Inj) 4 mg ONCE ONCE IVP Last administered on 20:25; Start 11/16/16 at 20:15; Stop 11/16/16 at 20:16; Status DC Pantoprazole Sodium 40 mg 40 mg ONCE ONCE IVP Last administered on 11/16/16 20:23; Start 11/16/16 at 20:15; Stop 11/16/16 at 20:16; Status DC Sodium Chloride (NS 1000 ml Inj) 1,000 ml @ 1,000 mls/hr Q1H IV Last administered on 11/16/16 20:30; Start 11/16/16 at 20:09; Stop 11/16/16 at 21:08 ; Status DC Sodium Chloride (NS Flush) 2 ml UNSCH PRN IV FLUSH FLUSH AFTER USING IV ACCESS ; Start 11/16/16 at 20:15; Stop 11/16/16 at 21:39; Status DC Famotidine (Pepcid Inj) 20 mg ONCE ONCE IV PUSH Last administered on 20:25; Start 11/16/16 at 20:15; Stop 11/16/16 at 20:16; Status DC Iohexol (Omnipaque 350 Inj) 97 ml STK-MED ONCE IV Last administered on 20:54; Start 11/16/16 at 20:54; Stop 11/16/16 at 20:55; Status DC Hydromorphone HCl (Dilaudid Pf Inj) 1 mg ONCE ONCE IVS ; Start 11/16/16 at 21: 15; Stop 11/16/16 at 21:17; Status DC Ondansetron HCl 4 mg 4 mg ONCE ONCE IVP Last administered on 11/16/16 21:40; Start 11/16/16 at 21:15; Stop 11/16/16 at 21:17; Status DC Sodium Chloride (NS 1000 ml Inj) 1,000 ml @ 1,000 mls/hr Q1H IV Last administered on 11/16/16 21:41; Start 11/16/16 at 21:15; Stop 11/16/16 at 22:14 ; Status DC Pantoprazole Sodium 40 mg 40 mg Q12H IV PUSH Last administered on 11/20/16 09: 41; Start 11/17/16 at 09:00 Piperacillin Sod/ Tazobactam Sod 100 ml @ 200 mls/hr Q6H IV Last administered on 11/17/16 03:49; Start 11/16/16 at 22:00; Stop 11/17/16 at 09:02; Status DC Sodium Chloride (NS 1000 ml Inj) 1,000 ml @ 100 mls/hr Q10H IV Last administered on 11/18/16 03:31; Start 11/16/16 at 21:31; Stop 11/18/16 at 09:02 ; Status DC Sodium Chloride (NS Flush) 2 ml UNSCH PRN IV FLUSH FLUSH AFTER USING IV ACCESS ; Start 11/16/16 at 21:45 Sodium Chloride (NS Flush) 2 ml BID IV FLUSH Last administered on 11/20/16 09: 00; Start 11/17/16 at 09:00 Ondansetron HCl (Zofran Inj) 4 mg Q6H PRN IVP NAUSEA OR VOMITING Last administered on 11/17/16 16:56; Start 11/16/16 at 21:45 Acetaminophen (Tylenol) 650 mg Q6H PRN PO FEVER/PAIN SCALE 1 TO 2; Start at 21:45 Hydromorphone HCl (Dilaudid Pf Inj) 1 mg Q3H PRN IV Pain 6-10 Last administered on 11/20/16 02:31; Start 11/16/16 at 21:45 Oxycodone HCl (Roxicodone) 5 mg Q4H PRN PO PAIN SCALE 3 TO 5 Last administered on 11/18/16 21:47; Start 11/16/16 at 21:45 Senna/Docusate Sodium (Melva-Colace) 1 tab BID PO Last administered on 20:46; Start 11/17/16 at 09:00 Magnesium Hydroxide (Milk Of Magnesia Liq) 30 ml Q12H PRN PO MILD - MODERATE CONSTIPATION; Start 11/16/16 at 21:45 Sennosides (Senokot) 17.2 mg Q12H PRN PO MODERATE - SEVERE CONSTIPATION; Start 11/16/16 at 21:45 Bisacodyl (Dulcolax Supp) 10 mg DAILY PRN RECTAL SEVERE CONSITIPATION; Start at 21:45 Lactulose (Lactulose Liq) 30 ml DAILY PRN PO SEVERE CONSITIPATION; Start at 21:45 Diphenhydramine HCl 25 mg 25 mg Q6H PRN PO ITCHING Last administered on 22:05; Start 11/17/16 at 13:30 Potassium Chloride/Sodium Chloride (NS + KCl 20 Meq Inj) 1,000 ml @ 100 mls/hr Q10H IV Last administered on 11/19/16 08:03; Start 11/18/16 at 10:00 Polyethylene Glycol/ Electrolytes (Colyte Liq) 4,000 ml ONCE ONCE PO Last administered on 11/19/16 15:02; Start 11/19/16 at 15:00; Stop 11/19/16 at 15:01 ; Status DC Propofol (Diprivan 200 Mg/20 ml Inj) 350 mg STK-MED ONCE IV ; Start 11/20/16 at 08:07; Stop 11/20/16 at 08:24; Status DC A/P Assessment and Plan A/P - acute pancreatitis- advance the diet slowly- continue with supportive care with IV fluid, pain control and antiemetics- GI consult appreciated . -anemia- hypochromic,microcytic due to iron deficiency- likely due to menorrhagia due to leiomyoma s/p PRBC transfusion with improved H/H- s/p EGD and colonoscopy with no abnormality- d/w . hematology consulted. d/w HIGH SCHOOL ACADEMIC COACH computer applications developer ( ) who recommended outpatient f/u with HIGH SCHOOL ACADEMIC COACH; this was d/w the patient. -hypokalemia; replaced. Discharge Planning possible dc home in am if stable. Flavia Love MD Nov 20, 2016 09:57
[2016-11-20 12:00] VITALS: BP 171/95; PULSE 60; RESP 16; TEMP 97.8; O2SAT 100
[2016-11-20 16:00] VITALS: BP 143/90; PULSE 77; RESP 16; TEMP 99.8; O2SAT 99
[2016-11-20] MEDS ORDERED: CYANOCOBALAMIN 1000 MCG/ML VIAL SQ ONE (19:45)
[2016-11-20 20:00] VITALS: BP 128/75; PULSE 80; RESP 16; TEMP 98.7; O2SAT 99
[2016-11-20] MEDS: FERROUS SULFATE 325 MG (65 MG ELEMENTAL IRON) TAB PO SCH (20:35)
[2016-11-20] MEDS ORDERED: IRON SUCROSE INJ 100 MG in SODIUM CHLORIDE 0.9% INJ 100 ML IV ONE (21:00)
--- NOTE | 2016-11-20 21:21 | MB ---
cc: SIRENA APARICIO M.D., MOHAMMADREZA MD DEVERAS, RUBY ANNE E. M.D. DATE OF CONSULTATION 11/20/2016 New patient consultation summary DATE OF [address] Aparicio. CHIEF COMPLA[address]. Aparicio requested consultation for Mrs. Vitale regarding severe anemia secondary to iron deficiency. HISTORY OF PRESENT ILLNESS Ms. Vitale is a 36-year-old woman with history of menometrorrhagia. She presented to the emergency room with abdominal pain. She had pain, epigastric in location, severe in intensity. She had nausea and emesis. On admission she was found to have a hemoglobin of 7.5. Her anemia is microcytic. Her platelet count is normal. White blood cell count mildly elevated. Review of the electronic medical record shows a normal hemoglobin in March 11, 2012 as well as in September 04, 2003. Iron studies performed during her hospitalization are consistent with iron deficiency with a ferritin of 3. She had evidence of pancreatitis with significant elevation of her lipase at 19,000, decreasing to 530 at the time of the consultation. Gastroenterology was consulted. She was seen by Dr. Velez who considered the source for her pancreatitis is alcohol versus biliary pathology. In the meantime Hematology/Oncology is consulted for menorrhagia and uterine fibroids. She had severe anemia associated with iron deficiency. She required transfusion of 2 units of packed red cells. Ms. Vitale still has some abdominal pain. Her epigastric pain persists. She has had no nausea or vomiting. She reports intermittent menorrhagia forever since mensarche. Her mother had the same menorrhagia. Her mother required hysterectomy in her 20s. The rest of her review of systems is negative. PAST MEDICAL HISTORY 1. Iron deficiency anemia. 2. Menorrhagia. 3. Pancreatitis. PAST SURGICAL HISTORY Appendectomy. FAMILY HISTORY Significant for mother with pancreatitis. Mother also has a history of anemia associated with menorrhagia. SOCIAL HISTORY She drinks alcohol occasionally. She has a few cigarettes a day. She denies illicit drug use. ALLERGIES NO KNOWN DRUG ALLERGIES. CURRENT MEDICATIONS Include: 1. Protonix. 2. Ferrous sulfate oral. 3. Benadryl. 4. Potassium chloride. 5. Zofran p.r.n. 6. Dilaudid p.r.n. 7. Roxicodone p.r.n. PHYSICAL EXAMINATION VITAL SIGNS: Temperature 99.8, heart rate 77, respiratory rate 16, blood pressure 143/90. GENERAL: Ms. Vitale is a well-developed, well-nourished, mildly heavy-set woman in no acute distress. HEENT: Her pupils are round and reactive to light and accommodation. Oropharynx is clear. NECK: Supple. LUNGS: Are clear to auscultation. CARDIOVASCULAR: Exam reveals normal rate and rhythm. ABDOMEN: Mild tenderness in the epigastric area. EXTREMITIES: Lower extremities with no edema. NEUROLOGIC: Exam is nonfocal. LABORATORY DATA Significant for hemoglobin of 8.4. Ferritin of 3. Iron saturation 2.4. Renal function is normal. Lipase 530. ASSESSMENT/PLAN Ms. Vitale is a 36-year-old woman with long history of anemia secondary to iron deficiency. She has anemia secondary to menorrhagia. She has a history uterine fibroids. She has not addressed this with her job service specialist. She describes a long cycle lasting 7 days for her menses and additional 2 or 3 days after where she wears a panty liner. She requires frequent changes in her pads. Her cycles are monthly. She has had two children. They also contribute to the iron deficit. Seems that the heavy menses contribute to it more recent. Her iron deficiency this severe is of more recent. We discussed plans to replace her iron. Her iron loss exceeds her ability to absorb it orally. For this reason I recommend parenteral iron therapy. She is given information about our clinic to continue followup on an outpatient basis. Defer to GI for management of her pancreatitis. This symptom appears to be resolving. She does not need any more transfusion at present. We will continue to monitor her hemoglobin. Our hope is that given parenteral iron therapy she will have significant hematopoiesis to avoid additional blood transfusions. We discussed lastly a possibility of underlying bleeding disorder such as of von Willebrand deficiency given mother's history of menorrhagia also. She, however, has no other manifestations of bleeding. No easy bruising. No recurrent epistaxis. Her children do not appear to be affected. Her questions were answered to her satisfaction. MD YOLIS Phillips/URIAH /7:42 PM /9:06 PM
[2016-11-21] VITALS: BP 153/81; PULSE 80; RESP 16; TEMP 98.5; O2SAT 100
[2016-11-21 08:00] VITALS: BP 157/94; PULSE 63; RESP 18; TEMP 99.4; O2SAT 100
[2016-11-21] MEDS: NS + KCL 20 MEQ INJ 1,000 ML IV SCH (08:00)
[2016-11-21] MEDS ORDERED: PANTOPRAZOLE SODIUM 40 MG VIAL IV PUSH SCH (09:00)
[2016-11-21] MEDS: SODIUM CHLORIDE 0.9% FLUSH 10 ML FLUSH IV FLUSH SCH (09:00)
[2016-11-21] MEDS: FERROUS SULFATE 325 MG (65 MG ELEMENTAL IRON) TAB PO SCH (09:37)
[2016-11-21] MEDS: DOCUSATE SODIUM 50 MG/SENNA 8.6 MG TAB PO SCH (09:37)
[2016-11-21 12:00] VITALS: BP 158/84; PULSE 58; RESP 18; TEMP 97.6; O2SAT 100
--- NOTE | 2016-11-21 13:57 | HHI.PR ---
Subjective Remarks This report is in ERROR Please disregard this report and all prior copies ! This report is in ERROR Please disregard this report and all prior copies ! This report is in ERROR Please disregard this report and all prior copies ! Objective Vitals Vital Signs Date Time Temp Pulse Resp B/P Pulse Ox O2 Delivery O2 Flow Rate FiO2 11/21/16 12:00 97.6 58 18 158/84 100 11/21/16 08:00 99.4 63 18 157/94 100 11/21/16 00:00 98.5 80 16 153/81 100 11/20/16 20:00 98.7 80 16 128/75 99 11/20/16 16:00 99.8 77 16 143/90 99 I/O 11/20/16 11/20/16 11/20/16 11/21/16 11/21/16 11/21/16 06:59 14:59 22:59 06:59 14:59 22:59 Intake Total 1000 ml 840 ml 1192 ml Balance 1000 ml 840 ml 1192 ml Intake Oral 1000 ml 690 ml 840 ml IV Total 352 ml Other 150 ml # Voids 4 3 7 # Bowel Movements 2 0 3 Result Diagram: 11/20/16 0521 11/18/16 0620 Imaging Last Impressions Pelvis Ultrasound 11/18/16 0000 Signed Impressions: Service Date/Time: Friday, November 18, 2016 15:38 - CONCLUSION: 1. Two presumed leiomyomas in the uterus largest measuring 4 cm. 2. Dominant follicle right ovary. Rhys Ni MD Cholangiopancreatography MRI 11/18/16 0000 Signed Impressions: Service Date/Time: Friday, November 18, 2016 10:00 - CONCLUSION: 1. Focal fat at the insertion site of falciform ligament corresponding to the questioned hyperechoic mass on the patient's prior ultrasound of no clinical significance. 2. Findings of acute pancreatitis not changed and the bile ducts appear unremarkable. Elicia Jewell MD Gall Bladder Ultrasound 11/17/16 0000 Signed Impressions: Service Date/Time: Thursday, November 17, 2016 15:11 - CONCLUSION: 1. Fluid surrounding the pancreas likely pancreatitis. Dilated pancreatic duct is not seen. 2. Echogenic liver lesion likely hemangioma. Rhys Ni MD Abdomen/Pelvis CT 11/16/162008 Signed Impressions: Service Date/Time: Wednesday, November 16, 2016 20:40 - CONCLUSION: Acute pancreatitis. Free fluid in the pelvis and probable fibroid. Zafar Brumfield MD Objective Remarks GENERAL: This is a well-nourished, well-developed patient, in no apparent distress. CARDIOVASCULAR: Regular rate and regular rhythm without murmurs, gallops, or rubs. RESPIRATORY: Clear to auscultation. Breath sounds equal bilaterally. No wheezes , rales, or rhonchi. GASTROINTESTINAL: Abdomen soft, epigastric tenderness, nondistended. Normal, active bowel sounds MUSCULOSKELETAL: Extremities without clubbing, cyanosis, or edema. NEURO: Alert & Oriented x4 to person, place, time, situation. Moves all ext x4 Medications and IVs Current Medications Medications (Trade) Dose Ordered Sig/Joaquín Route Start Time Stop Time Status Last Admin (NS Flush) 2 ml UNSCH PRN IV FLUSH 11/16/16 21:45 (NS Flush) 2 ml BID IV FLUSH 11/17/16 09:00 11/20/16 09:00 (Zofran Inj) 4 mg Q6H PRN IVP 11/16/16 21:45 11/17/16 16:56 (Tylenol) 650 mg Q6H PRN PO 11/16/16 21:45 (Dilaudid Pf Inj) 1 mg Q3H PRN IV 11/16/16 21:45 11/20/16 02:31 (Roxicodone) 5 mg Q4H PRN PO 11/16/16 21:45 11/21/16 09:42 (Melva-Colace) 1 tab BID PO 11/17/16 09:00 11/21/16 09:37 (Milk Of Magnesia Liq) 30 ml Q12H PRN PO 11/16/16 21:45 (Senokot) 17.2 mg Q12H PRN PO 11/16/16 21:45 (Dulcolax Supp) 10 mg DAILY PRN RECTAL 11/16/16 21:45 (Lactulose Liq) 30 ml DAILY PRN PO 11/16/16 21:45 Diphenhydramine HCl 25 mg 25 mg Q6H PRN PO 11/17/16 13:30 11/19/16 22:05 (NS + KCl 20 Meq Inj) 1,000 ml @ 100 mls/hr Q10H IV 11/18/16 10:00 11/19/16 08:03 (Protonix Inj) 40 mg DAILY IV PUSH 11/21/16 09:00 11/21/16 09:38 (Ferrous Sulfate) 325 mg BID PO 11/20/16 21:00 11/21/16 09:37 A/P Problem List: (1) Acute pancreatitis ICD Code: K85.90 Status: Acute (2) Anemia ICD Code: D64.9 Status: Acute Assessment and Plan - acute pancreatitis- advance the diet slowly- continue with supportive care with IV fluid, pain control and antiemetics- GI consult appreciated . -anemia- hypochromic,microcytic due to iron deficiency- likely due to menorrhagia due to leiomyoma s/p PRBC transfusion with improved H/H- s/p EGD and colonoscopy with no abnormality- d/w . hematology consulted. d/w NURSE NAVIGATOR aeronautical engineering professor ( ) who recommended outpatient f/u with NURSE NAVIGATOR; this was d/w the patient. -hypokalemia; replaced. Problem Qualifiers (1) Anemia: Qualified Code: D50.0 - Iron deficiency anemia due to chronic blood loss Niranjan Ugalde DO Nov 21, 2016 13:57
[2016-11-21] MEDS ORDERED: PANT40TA3 PO (14:12)
[2016-11-21] MEDS ORDERED: OXYC-392 PO (14:12)
--- NOTE | 2016-11-21 14:23 | HHI.DS ---
Discharge Summary Admission Date Nov 16, 2016 at 21:42 Discharge Date: Nov 21, 2016 Admitting Diagnosis acute pancreatitis, intractable pain/vomiting (1) Acute pancreatitis ICD Code: K85.90 Diagnosis: Principal (2) Anemia ICD Code: D64.9 Diagnosis: Principal Procedures EGD/ Colonoscopy Brief History - From Admission patient is a 36 y/o female with no significant past medical history who presented to ER with abdominal pain. she says that the pain started yesterday. pain was epigastric in location, constant and severe in intensity. she says that she tried some apple cider with no relief. pain was associated with nausea and emesis. she denies any rectal bleed or black stools. she says that she takes aleve on and off for her pain. she also reports heavy periods. CBC/BMP: 11/20/16 0521 11/18/16 0620 Significant Findings Laboratory Tests Test 11/19/16 11/20/16 06:35 05:21 Red Blood Count 3.56 MIL/MM3 (4.00-5.30) Hemoglobin 6.9 GM/DL 8.4 GM/DL (11.6-15.3) (11.6-15.3) Hematocrit 23.3 % 28.7 % (35.0-46.0) (35.0-46.0) Mean Corpuscular Volume 65.6 FL (80.0-100.0) Mean Corpuscular Hemoglobin 19.4 PG (27.0-34.0) Mean Corpuscular Hemoglobin 29.5 % Concent (32.0-36.0) Red Cell Distribution Width 22.3 % (11.6-17.2) Neutrophils (%) (Auto) 70.1 % (16.0-70.0) Monocytes (%) (Auto) 13.2 % (0.0-8.0) Monocytes # (Auto) 1.4 TH/MM3 (0-0.9) Basophilic Stippling FAINT (NORMAL) Ovalocytes 1+ (NORMAL) Rouleau PRESENT (NORMAL) Lipase 849 U/L 530 U/L (73-393) (73-393) Imaging Last Impressions Pelvis Ultrasound 11/18/16 Signed Impressions: Service Date/Time: Friday, November 18, 2016 15:38 - CONCLUSION: 1. Two presumed leiomyomas in the uterus largest measuring 4 cm. 2. Dominant follicle right ovary. Rhys Ni MD Cholangiopancreatography MRI 11/18/16 Signed Impressions: Service Date/Time: Friday, November 18, 2016 10:00 - CONCLUSION: 1. Focal fat at the insertion site of falciform ligament corresponding to the questioned hyperechoic mass on the patient's prior ultrasound of no clinical significance. 2. Findings of acute pancreatitis not changed and the bile ducts appear unremarkable. Elicia Jewell MD Gall Bladder Ultrasound 11/17/16 Signed Impressions: Service Date/Time: Thursday, November 17, 2016 15:11 - CONCLUSION: 1. Fluid surrounding the pancreas likely pancreatitis. Dilated pancreatic duct is not seen. 2. Echogenic liver lesion likely hemangioma. Rhys Ni MD Abdomen/Pelvis CT 11/16/162008 Signed Impressions: Service Date/Time: Wednesday, November 16, 2016 20:40 - CONCLUSION: Acute pancreatitis. Free fluid in the pelvis and probable fibroid. Zafar Brumfield MD PE at Discharge GENERAL: This is a well-nourished, well-developed patient, in no apparent distress. CARDIOVASCULAR: Regular rate and regular rhythm without murmurs, gallops, or rubs. RESPIRATORY: Clear to auscultation. Breath sounds equal bilaterally. No wheezes , rales, or rhonchi. GASTROINTESTINAL: Abdomen soft, epigastric tenderness, nondistended. Normal, active bowel sounds MUSCULOSKELETAL: Extremities without clubbing, cyanosis, or edema. NEURO: Alert & Oriented x4 to person, place, time, situation. Moves all ext x4 Pt update on day of discharge The patient said that she wanted to go home. She said that she was worried about her 15-year-old child who is home alone. She has been tolerating an appetite. 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 She said she will follow up with the physicians after discharge. Hospital Course Acute pancreatitis She was continued with supportive care with IV fluid, pain control and antiemetics. GI was consulted. MRCP without any acute abnormality. Her diet was advanced. She will follow up with GI as an outpt. She will continue a PPI. She will follow IgG4 levels with GI. Anemia Hypochromic,microcytic due to iron deficiency. Likely due to menorrhagia due to leiomyoma. S/p PRBC transfusion with improved H/H. S/p EGD and colonoscopy with no abnormality. Hematology was consulted, s/p IV iron and IM B12. She will continue PO iron. She will follow up with hematology. Also d/w AGRICULTURE SCIENCE TEACHER weatherization technician ( ) who recommended outpatient f/u with AGRICULTURE SCIENCE TEACHER. Pt Condition on Discharge: Stable Discharge Disposition: Discharge Home Discharge Time: > 30 minutes Discharge Instructions DIET: Follow Instructions for: As Tolerated, No Restrictions Activities you can perform: Weight Bearing as Hafsa Follow up Referrals: Gastroenterology PROBATION OFFICER Oncology - [address] Cohen PCP Follow-up New Medications: Ferrous Sulfate (Ferrous Sulfate) 325 Mg (65 Mg Iron) Tablet 325 MG PO BIDPC Nutritional Supplement #60 Ref 0 TAB Pantoprazole (Pantoprazole) 40 Mg Tab 40 MG PO DAILY Reflux #30 Ref 0 TAB Oxycodone (Oxycodone) 5 Mg Tab 5 MG PO Q6HR PRN PAIN SCALE 1 TO 10 #20 TAB Niranjan Ugalde DO Nov 21, 2016 14:23
[2016-11-21 14:37] LABS: AUTOMATED NEUTROPHIL # 7.5 TH/MM3 (1.8-7.7); BASOPHIL # 0.3 TH/MM3 (0-0.2); BASOPHIL % 2.8 % (0.0-2.0); CHLORIDE 109 MEQ/L (98-107); EOSINOPHIL # 0.2 TH/MM3 (0-0.4); EOSINOPHIL % 1.4 % (0.0-4.0); LYMPH % 19.8 % (9.0-44.0); LYMPHOCYTE # 2.2 TH/MM3 (1.0-4.8); MONO % 9.5 % (0.0-8.0); NEUT % 66.5 % (16.0-70.0); PLATELET COUNT 428 TH/MM3 (150-450); RED BLOOD COUNT 4.15 MIL/MM3 (4.00-5.30); RED CELL DISTRIBUTION WIDTH 25.4 % (11.6-17.2); SODIUM (NA) 140 MEQ/L (136-145); WHITE BLOOD COUNT 11.3 TH/MM3 (4.0-11.0)
[2016-11-21 14:40] LABS: ANION GAP 9 MEQ/L (5-15); BICARBONATE 21.9 MEQ/L (21.0-32.0); BLOOD UREA NITROGEN LESS THAN 1 MG/DL (7-18)
[2016-11-21 14:43] LABS: GLOMERULAR FILTRATION RATE 150 ML/MIN (>89)
[2016-11-21 14:48] LABS: HEMO FLAGS AUTO DIFF
[2016-11-21 15:36] LABS: OVALOCYTES 1+ (NORMAL)
[2016-11-21 15:37] LABS: SCAN/DIFF AUTO DIFF CONFIRMED
== END 2016-11-21 15:13 | disposition home or self-care (01) | DRG 440 ==
LOC: PHED 19:50 → PHEDA 21:42 → PHEDH 11-17 01:57 → PH3A 11-17 05:30
PROVIDERS: ADMIT Hospitalist; ATTEND Hospitalist
PROC: 30233N1 Transfusion of Nonautologous Red Blood Cells into Peripheral Vein, Percutaneous Approach (ICD-10-PCS; 2016-11-17)
PROC: 0DJ08ZZ Inspection of Upper Intestinal Tract, Via Natural or Artificial Opening Endoscopic (ICD-10-PCS; principal; 2016-11-20 07:55)
PROC: 0DJD8ZZ Inspection of Lower Intestinal Tract, Via Natural or Artificial Opening Endoscopic (ICD-10-PCS; 2016-11-20 07:55)
DX: K85.90 Acute pancreatitis without necrosis or infection, unspecified (principal); E87.6 Hypokalemia; D50.0 Iron deficiency anemia secondary to blood loss (chronic); F17.210 Nicotine dependence, cigarettes, uncomplicated; N92.1 Excessive and frequent menstruation with irregular cycle
CPT/HCPCS: 36430; 74177; 74181; 76377; 76705; 76856; 76937; 80048; 80053; 81001; 82272; 82728; 83540; 83550; 83690; 84478; 84702; 85014; 85018; 85025; 86077; 86850; 86870; 86900; 86901; 86920; 86921; 86922; 96361; 96374; 96375; 96376; C9113; J1170; J2405; J2543; J3420; J3480; J7030; P9016; Q9967

== ENCOUNTER 2016-12-17 10:31 | Emergency (ER) | payer MEDICAID ==
[~2016-12-17 10:31] MED LIST: FERR325T8 PO; OXYC-392 PO; PANT40TA3 PO
[2016-12-17 10:37] VITALS: BP 158/74; PULSE 84; RESP 18; TEMP 97.6; O2SAT 100
--- NOTE | 2016-12-17 11:01 | PD ---
HPI Chief Complaint: General Weakness Time Seen by Provider: 10:45 Travel History International Travel<30 days: No Contact w/Intl Traveler<30days: No Traveled to known affect area: No History of Present Illness HPI The patient was seen and examined in the presence of the nurse. This patient complains of lightheadedness. Duration is one day. No syncope but she felt like she might pass out earlier. She complains of some generalized type weakness. Was hospitalized last month and found to have severe anemia requiring blood transfusion. She does have to fibroids in her uterus. She has not followed up with [facility] in the last one month due to lack of insurance. Patient is currently on her menstrual period and she has very heavy periods usually. She's been bleeding for 3 days now. She does not think she is . No alleviating factors. Symptoms severity is moderate PFSH Past Medical History Anemia: Yes Cancer: No Cardiovascular Problems: No Diminished Hearing: No Endocrine: No Genitourinary: No Immune Disorder: No Medical other: Yes (LOW IRON LEVEL) Musculoskeletal: No Neurologic: No Psychiatric: No Reproductive: No Respiratory: No Influenza Vaccination: No ?: Not : 3 Para: 2 Miscarriage: 1 Past Surgical History Abdominal Surgery: Yes (APPENDECTOMY ) Appendectomy: Yes Other Surgery: Yes Social History Alcohol Use: Yes (occassional on weekends) Tobacco Use: Yes (7 cigs daily) Substance Use: No Allergies-Medications (Allergen,Severity, Reaction): Coded Allergies: No Known Allergies (Verified , 02/16/14) Reported Meds & Prescriptions Reported Meds & Active Scripts Active Pantoprazole (Pantoprazole Sodium) 40 Mg Tab 40 Mg PO DAILY Ferrous Sulfate 325 Mg (65 Mg Iron) Tablet 325 Mg PO BIDPC Review of Systems General / Constitutional: No: Fever Eyes: No: Visual changes HENT: Positive: Lightheadedness, No: Headaches Cardiovascular: No: Chest Pain or Discomfort Respiratory: No: Shortness of Breath Gastrointestinal: No: Abdominal Pain Genitourinary: No: Dysuria Musculoskeletal: Positive: Weakness, No: Pain Skin: No Rash Neurologic: Positive: Weakness, Dizziness Psychiatric: No: Depression Endocrine: No: Polydipsia Hematologic/Lymphatic: No: Easy Bruising Physical Exam Narrative GENERAL: Well-nourished, well-developed patient in no apparent distress. SKIN: Focused skin assessment reveals no rash and nodules. Skin is Warm and dry. HEAD: Atraumatic. Normocephalic. EYES: Pupils equal and round. No scleral icterus. No injection or drainage. ENT: No nasal bleeding or discharge. Mucous membranes pink and moist. NECK: Trachea midline. No JVD. CARDIOVASCULAR: Regular rate and rhythm. No murmur appreciated. RESPIRATORY: No accessory muscle use. Clear to auscultation. Breath sounds equal bilaterally. GASTROINTESTINAL: Abdomen soft, non-tender, nondistended. Hepatic and splenic margins not palpable. MUSCULOSKELETAL: No obvious deformities. No clubbing. No cyanosis. No edema. NEUROLOGICAL: Awake and alert. No obvious cranial nerve deficits. Motor grossly within normal limits. Normal speech. PSYCHIATRIC: Appropriate mood and affect; insight and judgment normal. Data Data Last Documented VS Vital Signs Date Time Temp Pulse Resp B/P (MAP) Pulse Ox O2 Delivery O2 Flow Rate FiO2 12/17/16 12:43 75 16 97 Room Air 12/17/16 12:42 146/82 (103) 12/17/16 10:37 97.6 Orders Orders Iv Access Insert/Monitor (12/17/16 10:54) Complete Blood Count With Diff (12/17/16 10:54) Basic Metabolic Panel (Bmp) (12/17/16 10:54) Fish Protector / Telemetry GEE.Q8H (12/17/16 10:54) Beta Hcg (Quant/Titer) (12/17/16 10:54) Labs Laboratory Tests Test 12/17/16 11:15 White Blood Count 8.3 TH/MM3 Red Blood Count 4.98 MIL/MM3 Hemoglobin 12.2 GM/DL Hematocrit 38.3 % Mean Corpuscular Volume 76.9 FL Mean Corpuscular Hemoglobin 24.4 PG Mean Corpuscular Hemoglobin Concent 31.7 % Red Cell Distribution Width 29.4 % Platelet Count 211 TH/MM3 Mean Platelet Volume 9.3 FL Neutrophils (%) (Auto) 64.6 % Lymphocytes (%) (Auto) 28.0 % Monocytes (%) (Auto) 5.2 % Eosinophils (%) (Auto) 1.3 % Basophils (%) (Auto) 0.9 % Neutrophils # (Auto) 5.4 TH/MM3 Lymphocytes # (Auto) 2.3 TH/MM3 Monocytes # (Auto) 0.4 TH/MM3 Eosinophils # (Auto) 0.1 TH/MM3 Basophils # (Auto) 0.1 TH/MM3 CBC Comment AUTO DIFF Differential Comment AUTO DIFF CONFIRMED Platelet Estimate NORMAL Platelet Morphology Comment NORMAL Target Cells 1+ Keratocytes 1+ Blood Urea Nitrogen 6 MG/DL Creatinine 0.75 MG/DL Random Glucose 93 MG/DL Calcium Level 8.7 MG/DL Sodium Level 140 MEQ/L Potassium Level 3.8 MEQ/L Chloride Level 108 MEQ/L Carbon Dioxide Level 24.0 MEQ/L Anion Gap 8 MEQ/L Estimat Glomerular Filtration Rate 105 ML/MIN Human Chorionic Gonadotropin, Quant LESS THAN 1 MIU/ML MDM Medical Decision Making Medical Screen Exam Complete: Yes Emergency Medical Condition: Yes Medical Record Reviewed: Yes Differential Diagnosis Symptomatically anemia, cardiac arrhythmia, vasovagal episode Narrative Course I have reviewed the patient's electronic medical record. I reviewed her discharge summary from last month. She was admitted for pancreatitis but found to be severely anemic and has uterine fibroid and menorrhagia IV placed Extended cardiac monitoring reveals sinus rhythm without ectopy Heart rate is 80 CBC shows hemoglobin is up to 12.2, quite good for her Metabolic profile is normal Beta hCG is negative She is neurologically intact. On recheck she feels improved. She's had no problems since she's been here I have monitored her almost 3 hours Stable for outpatient follow-up Diagnosis Primary Impression: Pre-syncope Additional Impression: Lightheadedness Additional Instructions: Follow-up with primary care and [facility] Med/Other Pt SpecificInfo: Other Disposition: 01 DISCHARGE HOME Condition: Stable Angelo Samayoa MD Dec 17, 2016 11:01
[2016-12-17 11:30] VITALS: BP 145/86; PULSE 74; RESP 16; O2SAT 100
[2016-12-17 11:30] LABS: CHLORIDE 108 MEQ/L (98-107); POTASSIUM 3.8 MEQ/L (3.5-5.1); SODIUM (NA) 140 MEQ/L (136-145)
[2016-12-17 11:35] LABS: ANION GAP 8 MEQ/L (5-15); BLOOD UREA NITROGEN 6 MG/DL (7-18)
[2016-12-17 11:38] LABS: GLOMERULAR FILTRATION RATE 105 ML/MIN (>89)
[2016-12-17 11:43] LABS: BETA HCG QUANT LESS THAN 1 MIU/ML (0-5)
[2016-12-17 11:44] LABS: AUTOMATED NEUTROPHIL # 5.4 TH/MM3 (1.8-7.7); BASOPHIL # 0.1 TH/MM3 (0-0.2); BASOPHIL % 0.9 % (0.0-2.0); EOSINOPHIL # 0.1 TH/MM3 (0-0.4); EOSINOPHIL % 1.3 % (0.0-4.0); HEMATOCRIT 38.3 % (35.0-46.0); LYMPHOCYTE # 2.3 TH/MM3 (1.0-4.8); MEAN CELL VOLUME 76.9 FL (80.0-100.0); MEAN CORPUSCULAR HEMOGLOBIN 24.4 PG (27.0-34.0); MEAN CORPUSCULAR HGB CONC 31.7 % (32.0-36.0); MONO % 5.2 % (0.0-8.0); NEUT % 64.6 % (16.0-70.0); PLATELET COUNT 211 TH/MM3 (150-450); RED BLOOD COUNT 4.98 MIL/MM3 (4.00-5.30); RED CELL DISTRIBUTION WIDTH 29.4 % (11.6-17.2); WHITE BLOOD COUNT 8.3 TH/MM3 (4.0-11.0)
[2016-12-17 11:51] LABS: HEMO FLAGS AUTO DIFF
[2016-12-17 12:37] LABS: KERATOCYTES 1+ (NORMAL); PLATELET ESTIMATE SMEAR NORMAL (NORMAL); PLATELET MORPHOLOGY NORMAL (NORMAL); SCAN/DIFF AUTO DIFF CONFIRMED; TARGET CELLS 1+ (NORMAL)
[2016-12-17 12:42] VITALS: BP 146/82; PULSE 76; RESP 16; O2SAT 97
[2016-12-17 13:43] VITALS: BP 118/76
== END 2016-12-17 13:52 | disposition home or self-care (01) ==
LOC: PHED 10:31
DX: R55 Syncope and collapse (principal); F17.210 Nicotine dependence, cigarettes, uncomplicated; D64.9 Anemia, unspecified; N92.0 Excessive and frequent menstruation with regular cycle
CPT/HCPCS: 80048; 84702; 85025; 99284